=== PATIENT | female | born 1945 | race Caucasian/White ===

== ENCOUNTER → 2019-07-10 09:43 | Outpatient (BNVA) | payer MEDICARE, SELFPAY | PROVIDERS: Family Provider Family Medicine; PCP Family Medicine; Visit Provider Family Medicine | DX: E03.9 Hypothyroidism, unspecified (principal); F03.91 Unspecified dementia, unspecified severity, with behavioral disturbance | CPT/HCPCS: 80053; 84443; 85025 ==

== ENCOUNTER → 2020-01-07 09:53 | Outpatient (BNVA) | payer MEDICARE, SELFPAY | PROVIDERS: Family Provider Family Medicine; PCP Family Medicine; Visit Provider Family Medicine | DX: E03.9 Hypothyroidism, unspecified (principal); Z13.6 Encounter for screening for cardiovascular disorders | CPT/HCPCS: 80061; 84443 ==

== ENCOUNTER → 2020-03-20 11:46 | Outpatient (BNVA) | payer MEDICARE, SELFPAY | PROVIDERS: Family Provider Family Medicine; PCP Family Medicine; Visit Provider Family Medicine | DX: E03.9 Hypothyroidism, unspecified (principal) | CPT/HCPCS: 84443 ==

== ENCOUNTER → 2020-09-26 09:55 | Outpatient (BNVA) | payer MEDICARE, SELFPAY | PROVIDERS: Family Provider Family Medicine; PCP Family Medicine; Visit Provider Family Medicine | DX: R41.82 Altered mental status, unspecified (principal); E03.9 Hypothyroidism, unspecified; L60.0 Ingrowing nail | CPT/HCPCS: 81000; 84443; 87086 ==

== ENCOUNTER 2024-01-17 19:47 | Inpatient (IN) | payer MEDICARE, MEDICAID, SELFPAY ==
[2024-01-17 19:51] VITALS: BP 130/89; PULSE 80; RESP 18; TEMP 37.2; O2SAT 93; BMI 27.3
[2024-01-17 19:54] VITALS: BP 130/89; PULSE 80; RESP 18; TEMP 37.2; O2SAT 93
--- NOTE | 2024-01-17 19:54 | XRR_ITS ---
PROCEDURE INFORMATION: Exam: XR Left Knee Exam date and time: 01/17/2024 8:21 PM Age: 78 years old Clinical indication: Injury or trauma; Fall; Blunt trauma; Knee; Left; Additional info: Fall, hip FX TECHNIQUE: Imaging protocol: Radiologic exam of the left knee. Views: 3 views. COMPARISON: CR (LOW EXM, ) 01/17/2024 8:13 PM FINDINGS: Bones/joints: Normal. Soft tissues: Normal. XR/XR knee LT 3V* [id number] IMPRESSION: No acute findings.
--- NOTE | 2024-01-17 19:54 | XRR_ITS ---
PROCEDURE INFORMATION: Exam: XR Chest Exam date and time: 01/17/2024 8:04 PM Age: 78 years old Clinical indication: Injury or trauma; Fall; Blunt trauma (contusions or hematomas) TECHNIQUE: Imaging protocol: Radiologic exam of the chest. Views: 1 view. COMPARISON: No relevant prior studies available. FINDINGS: Lungs: Unremarkable. No consolidation. Pleural spaces: Unremarkable. No pleural effusion. No pneumothorax. Heart/Mediastinum: Large hiatal hernia. Mild cardiomegaly. Bones/joints: Unremarkable. XR/XR chest 1V portable [id number] IMPRESSION: 1. Negative for traumatic injury to the chest. 2. Large hiatal hernia. 3. Mild cardiomegaly.
--- NOTE | 2024-01-17 19:54 | XRR_ITS ---
PROCEDURE INFORMATION: Exam: XR Left Hip Exam date and time: 01/17/2024 8:06 PM Age: 78 years old Clinical indication: Injury or trauma; Fall; Blunt trauma (contusions or hematomas); Left; Hip and pelvic region; Additional info: Fall FX TECHNIQUE: Imaging protocol: Radiologic exam of the left hip. Views: 2 or 3 views hip with pelvis when performed. COMPARISON: US renal BI* [id number] 04/13/2018 4:24 PM FINDINGS: Bones/joints: Equivocal left hip subcapital impacted fracture, consider correlation with CT scan. Soft tissues: Unremarkable. XR/XR hip LT 2-3V wo/w pel* [id number] IMPRESSION: Equivocal left hip subcapital impacted fracture, consider correlation with CT scan.
--- NOTE | 2024-01-17 19:58 | ED_ITS ---
HPI - Extremity Problem 2 General: Chief complaint: Extremity Injury, Lower Stated complaint: hip fx, femur fx Time Seen by Provider: 01/17/24 19:49 History of Present Illness: [facility] with complaints of a fall on Tuesday and complaining of left hip pain when she bears weight ever since. They did get an x-ray of her lumbosacral spine, left hip and left femur, these showed impacted left femoral neck fracture. She was transferred over here for further evaluation treatment. Patient does have dementia but she is mobile. Related Data Home Medications Medication Instructions Recorded Confirmed ibuprofen 800 mg tablet 800 mg PO QDAY PRN pain 06/22/19 10/23/20 loratadine 10 mg capsule 10 mg PO QDAY 06/22/19 10/23/20 Previous Rx's Medication Instructions Recorded citalopram 20 mg tablet 20 mg PO QDAY #90 tabs 01/07/20 levothyroxine 50 mcg capsule 50 mcg PO DAILY #90 caps 09/29/20 olanzapine 5 mg tablet (Zyprexa) 5 mg PO .AT BEDTIME #30 tabs 09/29/20 omeprazole 20 mg capsule,delayed 20 mg PO .EVERY MORNING #30 caps 09/29/20 release Allergies Allergy/AdvReac Type Severity Reaction Status Date / Time No Known Allergies Allergy Verified 01/17/24 19:54 Review of Systems 2 General: Reports: ROS unobtainable due to mental status PFSH ED 2 PFSH: Medical History (Updated 01/17/24 @ 20:06 by Walter Morales DO) Hypothyroid Dementia with psychosis Dyslipidemia Surgical History S/P cataract surgery Surgical history unknown Social History Smoking and tobacco/nicotine status: never used tobacco/nicotine Alcohol intake: never Substance/Drug Use: never Caregiver/support person: Yes Lives independently: No Household members: caregiver Physical Exam 2 Const: COMMON NORMALS: no acute distress, average body habitus, healthy appearing, alert and well nourished HENMT: COMMON NORMALS: normocephalic, atraumatic, hearing grossly normal bilaterally, external ears normal, Normal external nose present and moist oral mucous membranes HEAD & SCALP: normocephalic and atraumatic NOSE: Normal external nose present EXTERNAL EAR: Yes external ears normal Neck/C-Spine: COMMON NORMALS: full ROM, no lymphadenopathy, supple, no meningeal signs, no JVD and Thyroid normal THYROID: Thyroid normal Chest: COMMONS NORMALS: normal inspection of the chest and normal palpation of entire chest wall Resp: COMMON NORMALS: normal respiratory effort, No retractions, No use of accessory muscles and clear to auscultation bilaterally AUSCULTATION: clear to auscultation bilaterally Cardio: COMMON NORMALS: no JVD, regular rate, regular rhythm, S1 normal heart sound present, S2 normal heart sound present, No gallops present (Cardio), No clicks present (Cardio), No murmurs present (Cardio) and No rub (Cardio) R ATE: regular rate RHYTHM: regular rhythm HEART SOUNDS: S1 normal heart sound present and S2 normal heart sound present GI: COMMON NORMALS: Normal to inspection, nondistended, normoactive bowel sounds present, Soft to palpation, non-tender, No hepatosplenomegaly present and no masses PALPATION: Yes Soft to palpation and Yes No hepatosplenomegaly present Extremity: NARRATIVE EXTREMITY EXAM: Tenderness with palpation over the left hip region, no obvious crepitus or deformity, limited range of motion secondary to pain, Neuro: SENSORIUM/ORIENTATION: Yes alert MENINGEAL SIGNS: Yes no meningeal signs Course 2 Vital Signs: Vital signs: Vital Signs Temperature 98.9 F 01/17/24 19:54 Pulse Rate 80 01/17/24 19:54 Respiratory Rate 18 01/17/24 19:54 Blood Pressure 130/89 01/17/24 19:54 Pulse Oximetry 93 01/17/24 19:54 Oxygen Delivery Me thod Nasal Cannula 01/17/24 19:54 Oxygen Flow Rate 2 01/17/24 19:51 MDM - Extremity (Nontraumatic) Medical Decision Making X-rays were sent with the patient, we are repeating the x-rays as well as getting presurgical labs, Dr. Junior and Dr. Choi have both been notified and agreed to place the patient inpatient for further evaluation and treatment. Medical Records I reviewed the patient's medical records. Lab Data I reviewed the patient's lab results. 01/17/24 20:00 01/17/24 20:00 Laboratory Results WBC 11.20 10^3/uL (3.29-11.43) 01/17/24 20:00 RBC 3.73 10^6/uL (3.85-5.65) L 01/17/24 20:00 Hgb 11.80 g/dL (11.27-16.99) 01/17/24 20:00 Hct 36.2 % (36-47) 01/17/24 20:00 MCV 97.1 fl (85-98) 01/17/24 20:00 MCH 31.6 pg (27-33) 01/17/24 20:00 MCHC 32.6 g/dL (30-55) 01/17/24 20:00 RDW 13.7 % (12.1-15.1) 01/17/24 20:00 Plt Count 225 10^3/cmm (157-399) 01/17/24 20:00 MPV 10.6 fL (7.4-10.4) H 01/17/24 20:00 Neut % (Auto) 82.6 % 01/17/24 20:00 Lymph % (Auto) 6.9 % 01/17/24 20:00 Frontier % (Auto) 6.9 % 01/17/24 20:00 Eos % (Auto) 2.9 % 01/17/24 20:00 Baso % (Auto) 0.3 % 01/17/24 20:00 Neut # (Auto) 9.25 10^3/uL (1.8-7.7) H 01/17/24 20:00 Lymph # (Auto) 0.8 10^3/uL (0.8-4.8) 01/17/24 20:00 Frontier # (Auto) 0.8 10^3/uL (0.2-0.9) 01/17/24 20:00 Eos # (Auto) 0.3 10^3/uL (0.0-0.8) 01/17/24 20:00 Baso # (Auto) 0.0 10^3/uL (0.0-0.1) 01/17/24 20:00 Nucleated RBC % (auto) 0 % 01/17/24 20:00 Nucleated RBCs # 0.0 /100WBC 01/17/24 20:00 PT 13.40 SECONDS (12.1-14.9) 01/17/24 20:00 INR 0.99 (0.8-1.2) 01/17/24 20:00 Sodium 142 mmol/L (136-145) 01/17/24 20:00 Potassium 3.9 mmol/L (3.5-5.1) 01/17/24 20:00 Chloride 108 mmol/L (98-107) H 01/17/24 20:00 Carbon Dioxide 22 mmol/L (22-29) 01/17/24 20:00 Anion Gap 15.9 (5-19) 01/17/24 20:00 BUN 32 mg/dL (8-23) H 01/17/24 20:00 Creatinine 0.8 mg/dL (0.5-0.9) 01/17/24 20:00 GFR Calculation Not Reportable 01/17/24 20:00 Glucose 115 mg/dL (65-115) 01/17/24 20:00 Calculated Osmolality 302 mOsm/kg (285-295) H 01/17/24 20:00 Calcium 9.0 mg/dL (8.5-10.5) 01/17/24 20:00 Total Bilirubin 0.3 mg/dL (0.15-1.2) 01/17/24 20:00 AST 41 U/L (0-32) H 01/17/24 20:00 ALT 32 U/L (0-33) 01/17/24 20:00 Alkaline Phosphatase 129 U/L (35-105) H 01/17/24 20:00 Total Protein 7.5 g/dL (6.6-8.7) 01/17/24 20:00 Albumin 3.8 g/dL (3.5-5.2) 01/17/24 20:00 Globulin 3.7 g/dL (1.3-4.6) 01/17/24 20:00 All radiology interpretation(s) finalized by discharge Discharge Plan Discharge Patient Disposition: Admitted As Inpatient Admit Provider: Robert Junior Clinical Impression: Closed fracture of left hip, Dementia, Fall Condition: Stable Coding Level of Care Code ED Clinical Rehabilitation Specialist for Ambrose Jennings
--- NOTE | 2024-01-17 19:59 | XRR_ITS ---
PROCEDURE INFORMATION: Exam: XR Left Femur Exam date and time: 01/17/2024 8:13 PM Age: 78 years old Clinical indication: Injury or trauma; Fall; Blunt trauma; Thigh or upper leg; Left; Additional info: Fall hip FX TECHNIQUE: Imaging protocol: Radiologic exam of the left femur. Views: 2 views. COMPARISON: CR (PELVIS, ) 01/17/2024 8:06 PM FINDINGS: Bones/joints: Equivocal left hip subcapital impacted fracture, consider correlation with CT scan. Soft tissues: Unremarkable. XR/XR femur LT min 2V* [id number] IMPRESSION: Equivocal left hip subcapital impacted fracture, consider correlation with CT scan.
--- NOTE | 2024-01-17 20:04 | ECG_ITS ---
[facility] Test Date: 2024-01-17 Pat Name: Larisa Cobian Department: Room: Gender: Female Lead Application Architect: : [id number] Requested By: Walter Morales Order Number: [id number] Loli MD: Korina Melendez M.D. Measurements Intervals [place] Rate: 79 P: 0 MT: 0 QRS: -34 QRSD: 85 T: 47 QT: 379 QTc: 435 Interpretive Statements SUPRAVENTRICULAR RHYTHM LEFT AXIS DEVIATION [QRS AXIS < -30] LOW QRS VOLTAGE IN PRECORDIAL LEADS [QRS DEFLECTION < 1.0 mV IN CHEST LEADS] PATTERN CONSISTENT WITH PULMONARY DISEASE POSSIBLE RIGHT VENTRICULAR CONDUCTION DELAY [RSR (QR) IN V1/V2] No previous ECG available for comparison Heavy baseline artifact, need to repeat. Defective EKG Electronically Signed On 01-17-2024 23:33:10 CDT by Korina Melendez M.D. [email or web address]
[2024-01-17 20:09] LABS: Basophils % 0.3 %; Eosinophils # 0.3 10^3/uL (0.0-0.8); Eosinophils % 2.9 %; Hematocrit 36.2 % (36-47); Lymphocytes # 0.8 10^3/uL (0.8-4.8); Lymphocytes % 6.9 %; Mean Corpuscular HGB Conc 32.6 g/dL (30-55); Mean Corpuscular Hemoglobin 31.6 pg (27-33); Mean Corpuscular Volume 97.1 fl (85-98); Mean Platelet Volume 10.6 fL (7.4-10.4); Monocytes # 0.8 10^3/uL (0.2-0.9); Monocytes % 6.9 %; Neutrophils # 9.25 10^3/uL (1.8-7.7); Neutrophils % 82.6 %; Nucleated Red Blood Cells % 0 %; Platelet Count 225 10^3/cmm (157-399); Red Blood Count 3.73 10^6/uL (3.85-5.65); Red Cell Distribution Width 13.7 % (12.1-15.1)
[2024-01-17 20:21] LABS: INR 0.99 (0.8-1.2)
[2024-01-17 20:27] LABS: Alanine Aminotransferase 32 U/L (0-33); Albumin Level 3.8 g/dL (3.5-5.2); Alkaline Phosphatase 129 U/L (35-105); Anion Gap 15.9 (5-19); Aspartate Amino Transferase 41 U/L (0-32); Blood Urea Nitrogen 32 mg/dL (8-23); Carbon Dioxide 22 mmol/L (22-29); Chloride 108 mmol/L (98-107); Creatinine Clr Calc Pharmacy 47.4402; Globulin 3.7 g/dL (1.3-4.6); Glucose 115 mg/dL (65-115); Osmolality Calculated 302 mOsm/kg (285-295); Potassium 3.9 mmol/L (3.5-5.1); Sodium 142 mmol/L (136-145); Total Bilirubin 0.3 mg/dL (0.15-1.2); Total Protein 7.5 g/dL (6.6-8.7)
[2024-01-17] MEDS: ondansetron 2 mg/ML SDV 2 mL 4 MG IVP (21:00)
[2024-01-17] MEDS: morphine 4 mg/mL SDV 1 mL IVP (21:00)
--- NOTE | 2024-01-17 21:45 | P.HP_ITS ---
Providers/Chief Complaint 2 Admitting Physician: Robert Junior Primary Care Provider: Cheryl Sullivan DO Chief Complaint: hip fx, femur fx History of Present Illness 78-year-old lady with history of dementia, hypothyroidism, long-term resident, was brought in after complaining of left hip pain after a fall on Tuesday. Found to have an impacted left femoral neck fracture on x-ray in ER. Orthopedics consulted. Review of Systems 2 General: Reports: ROS unobtainable due to medical condition Medications/Allergies Home Medications Medication Instructions Recorded Confirmed Last Taken Type loratadine 10 mg capsule 10 mg PO DAILY PRN allergies 06/22/19 01/17/24 Unknown History 2 Darwin 90 ml PO BID 01/17/24 01/17/24 01/17/24 16:04 History acetaminophen 325 mg tablet 325 mg PO QID PRN pain or fever 01/17/24 01/17/24 01/17/24 07:04 History bisacodyl 10 mg rectal suppository 10 mg W[place] DAILY PRN constipaiton 01/17/24 01/17/24 Unknown History citalopram 20 mg tablet 10 mg PO DAILY 01/17/24 01/17/24 01/17/24 07:02 History hydrocodone 5 mg-acetaminophen 325 1 tab PO BID PRN Pain, Severe 01/17/24 01/17/24 01/17/24 10:07 History mg tablet hydrocortisone 1 % topical cream 1 applic topical BID PRN itching 01/17/24 01/17/24 Unknown History for rash levothyroxine 75 mcg tablet 75 mcg PO DAILY 01/17/24 01/17/24 01/17/24 07:02 History magnesium hydroxide 400 mg/5 mL 400 mg PO DAILY PRN Constipation 01/17/24 01/17/24 Unknown History oral suspension (Milk of Magnesia) nystatin 100,000 unit/gram topical 1 applic topical BID Rash 01/17/24 01/17/24 01/17/24 18:36 History powder omeprazole 20 mg capsule,delayed 20 mg PO DAILY 01/17/24 01/17/24 01/17/24 07:02 History release polyethylene glycol 3350 17 gram 17 g PO DAILY 01/17/24 01/17/24 01/17/24 07:02 History oral powder packet (Miralax) quetiapine 100 mg tablet 150 mg PO BEDTIME 01/17/24 01/17/24 01/17/24 17:10 History quetiapine 50 mg tablet (Seroquel) 50 mg PO DAILY 01/17/24 01/17/24 01/17/24 07:02 History sodium phosphates 19 gram-7 118 ml W[place] DAILY PRN Constipation 01/17/24 01/17/24 Unknown History gram/118 mL enema (Fleet Enema) Allergies Allergy/AdvReac Type Severity Reaction Status Date / Time No Known Allergies Allergy Verified 01/17/24 19:54 PFSH Acute 2 PFSH: Medical History Hypothyroid Dementia with psychosis Dyslipidemia Surgical History S/P cataract surgery Surgical history unknown Social History Smoking and tobacco/nicotine status: never used tobacco/nicotine Alcohol intake: never Substance/Drug Use: never Caregiver/support person: Yes Lives independently: No Household members: caregiver Vitals/I&O/Wt Last Vital Signs Temp 98.9 F 01/17/24 19:54 Pulse 80 01/17/24 19:54 Resp 18 01/17/24 19:54 BP 130/89 01/17/24 19:54 Pulse Ox 93 01/17/24 19:54 O2 Del Method Nasal Cannula 01/17/24 19:54 O2 Flow Rate 2 01/17/24 19:51 Weight last 48 hrs Weight 63.503 kg Physical Exam 2 Const: COMMON NORMALS: alert; negative for patient oriented x3 GENERAL APPEARANCE: not cooperative O RIENTATION/CONSCIOUSNESS: Yes awake HENMT: COMMON NORMALS: oropharynx normal Neck/C-Spine: COMMON NORMALS: no JVD Resp: COMMON NORMALS: normal respiratory effort and clear to auscultation bilaterally AUSCULTATION: clear to auscultation bilaterally Cardio: COMMON NORMALS: no JVD, regular rhythm, S1 normal heart sound present, S2 normal heart sound present and No murmurs present (Cardio) RHYTHM: regular rhythm HEART SOUNDS: S1 normal heart sound present and S2 normal heart sound present GI: COMMON NORMALS: Normal to inspection, nondistended, normoactive bowel sounds present, Soft to palpation and non-tender PALPATION: Yes Soft to palpation Extremity: COMMON NORMALS: no joint enlargement and no pedal edema Neuro: COMMON NORMALS: moves all extremities; negative for patient oriented x3 SENSORIUM/ORIENTATION: Yes alert Skin: COMMON NORMALS: no rashes or lesions noted GENERAL SKIN EXAM: no rashes or lesions noted Data 01/17/24 20:00 01/17/24 20:00 A&P Assessment and plan (1) Closed fracture of left hip: Impacted left hip subcapital fracture after a fall on Tuesday noted on x-ray in ER. Femur and knee x-rays without other abnormality. Chest x-ray with large hiatal hernia, mild cardiomegaly. Without acute findings. She is unable to provide history. History obtained from collateral sources. Reviewed vitals, CBC, INR, CMP, EKG somewhat difficult to interpret due to tremor, but appears to be in sinus rhythm without obvious signs of ischemia, possible Q waves in V1 on my interpretation, pending official read. Reviewed ER note, discussed with ER provider. Orthopedics will be seeing her with regards to options for hip fracture. VTE prophylaxis 1 dose of heparin. Follow-up CBC, chemistry, at risk of anemia. Acetaminophen and her hydrocodone for mild to moderate pain. IV morphine for severe breakthrough. Miralax, dulcolax PRN. Qualifiers: Encounter type: initial encounter Qualified Code(s): S72.002A - Fracture of unspecified part of neck of left femur, initial encounter for closed fracture (2) Dementia: Continue citalopram, quetiapine. Qualifiers: Dementia behavioral or psychological symptom: unspecified whether behavioral, psychotic, or mood disturbance or anxiety Dementia severity: m oderate Dementia type: unspecified type Qualified Code(s): F03.B0 - Unspecified dementia, moderate, without behavioral disturbance, psychotic disturbance, mood disturbance, and anxiety (3) Hypothyroid: Continue levothyroxine. Attestations 2 Medical Necessity Statement*: Admission of over 2 midnights anticipated for assessment of management of left hip fracture in a lady of advanced age with dementia. and High MDM includes amount and/or complexity of data reviewed/ordered [ previous or external records, resulted lab(s)/test(s), ordered lab(s)/test(s), independent test interpretation and other healthcare professional discussion] and described risk of complication, morbidity or mortality of management as documented Diagnoses Closed fracture of left hip S72.002A Encounter type: initial encounter Dementia F03.B0 Dementia behavioral or psychological symptom: unspecified whether behavioral, psychotic, or mood disturbance or anxiety Dementia severity: moderate Dementia type: unspecified type Hypothyroid E03.9
[2024-01-17 21:52] LABS: Charge for UA Resulting for Rev
[2024-01-17 21:59] LABS: Bilirubin Urine Negative (Negative); Blood Urine Negative (Negative); Glucose Urine UA Negative (Normal); Ketones Urine Negative (Negative); Leukocyte Esterase Urine Trace (Negative); Nitrate Urine Negative (Negative); Protein Urine Trace (Negative); Specific Gravity, Urine 1.021 (1.005-1.030); Urine Appearance Cloudy (CLEAR); Urine Color Yellow (Yellow); pH Urine 5.5 (5-7)
[2024-01-17 22:01] LABS: Bacteria Urine 4+ /hpf; Hyaline Casts Urine 1.21 /lpf; RBC Urine 0-2 /hpf (0-2); Squamous Epithelial Cell Urine 0-5 /hpf (0-5)
[2024-01-17 22:08] LABS: Add Urine Culture? Yes
[2024-01-17 22:12] VITALS: BP 137/89; PULSE 79; RESP 17; TEMP 37.1; O2SAT 93; BMI 27.5
[2024-01-17] MEDS: HYDROcodone-acetaminophen 5-325 mg Tablet 1 TAB PO (22:44)
[2024-01-17] MEDS: quetiapine 100 mg Tablet 150 MG PO (22:44)
[2024-01-17] MEDS: heparin 5,000 unit/mL INJ 1 mL 5000 UNIT SUBCUT (22:44)
--- NOTE | 2024-01-17 23:07 | PC.NURSE ---
[facility] staff states that patient is on a pureed diet and they crush her pills. They state that patient is mostly wheelchair bound and needs assistance with transfers. Patient is AMS and unable to answer questions.
--- NOTE | 2024-01-17 23:10 | CTR_ITS ---
PROCEDURE INFORMATION: Exam: CT Left Lower Extremity, Hip Exam date and time: 01/18/2024 1:28 AM Age: 78 years old Clinical indication: Pain; Hip; Left; Additional info: Left hip fem neck fract TECHNIQUE: Imaging protocol: CT of the left lower extremity without contrast was performed. Exam focused on the hip. Radiation optimization: All CT scans at this facility use at least one of these dose optimization techniques: automated exposure control; mA and/or kV adjustment per patient size (includes targeted exams where dose is matched to clinical indication); or iterative reconstruction. COMPARISON: CR (PELVIS, ) 01/17/2024 8:06 PM RADIATION DOSE METRICS: Total DLP (mGy-cm): 341.58 FINDINGS: Bones/joints: Acute or subacute left subcapital femoral neck fracture with mild fracture impaction/foreshortening mild apex anterior angulation. Femoral head remains well seated within the acetabular fossa. Osseous demineralization. No other fractures identified. Soft tissues: Soft tissue swelling about the fracture. CT/CT hip LT wo con* [id number] IMPRESSION: Acute or subacute left subcapital femoral neck fracture.
[2024-01-18] VITALS (15 sets, daily range): BP systolic 101–148; BP diastolic 60–93; PULSE 59–77; RESP 12–18; TEMP 36.1–37.1; O2SAT 92–100; BMI 27.6
[2024-01-18 05:31] LABS: Basophils % 0.4 %; Eosinophils # 0.4 10^3/uL (0.0-0.8); Eosinophils % 5.5 %; Hematocrit 35.1 % (36-47); Lymphocytes # 1.1 10^3/uL (0.8-4.8); Lymphocytes % 14.2 %; Mean Corpuscular HGB Conc 31.3 g/dL (30-55); Mean Corpuscular Volume 98.9 fl (85-98); Monocytes # 0.5 10^3/uL (0.2-0.9); Monocytes % 7.1 %; Neutrophils # 5.36 10^3/uL (1.8-7.7); Neutrophils % 72.3 %; Nucleated Red Blood Cells % 0 %; Platelet Count 204 10^3/cmm (157-399); Red Blood Count 3.55 10^6/uL (3.85-5.65); Red Cell Distribution Width 13.7 % (12.1-15.1); White Blood Count 7.42 10^3/uL (3.29-11.43)
[2024-01-18 05:58] LABS: Alanine Aminotransferase 34 U/L (0-33); Albumin Level 3.3 g/dL (3.5-5.2); Alkaline Phosphatase 111 U/L (35-105); Blood Urea Nitrogen 26 mg/dL (8-23); Calcium 8.5 mg/dL (8.5-10.5); Carbon Dioxide 21 mmol/L (22-29); Chloride 113 mmol/L (98-107); Creatinine Clr Calc Pharmacy 47.7178; Globulin 3.4 g/dL (1.3-4.6); Glucose 90 mg/dL (65-115); Osmolality Calculated 306 mOsm/kg (285-295); Sodium 146 mmol/L (136-145); Total Bilirubin 0.5 mg/dL (0.15-1.2); Total Protein 6.7 g/dL (6.6-8.7)
[2024-01-18 06:00] LABS: Anion Gap 16.1 (5-19); Aspartate Amino Transferase 47 U/L (0-32); Potassium 4.1 mmol/L (3.5-5.1)
[2024-01-18] MEDS: levothyroxine 75 mcg Tablet PO (06:47)
--- NOTE | 2024-01-18 08:54 | P.CONIM_ITS ---
<Statement entered by Parth Choi DO - 01/30/24 22:16> Reviewed and agree with PAs assessment and plan. Patient was seen and evaluated in the preoperative holding area as well as with the patient's POA. Patient is demented at baseline and unable to obtain an appropriate history. She currently resides in a halfway and was brought in after a fall. She is found to have a displaced left hip femoral neck fracture originally this was appear to be impacted but CT scan demonstrates significant angular deformity and displacement as result feel this would be better amenable for a left hip hemiarthroplasty. I did talk with her POA about treatment options far as nonoperative and operative invention. We talked about the risk benefits complication alternatives surgery. Risk of surgery include but not limited to make a better make it worse injury nerves vessels or tendons, leg length discrepancies, and instability, infection. Understanding risk of surgery through shared decision making agree with POA to proceed with surgical intervention today of a left hip hemiarthroplasty with goals for better pain control as well as for earlier mobilization with comfort. Sounds at baseline she is mostly wheelchair-bound but does some weightbearing for transfers POA understands and agrees with current plan. All questions been answered at this time. Will we will proceed with a left hip hemiarthroplasty today. Parth Choi DO Orthopedic surgery Providers/Reason For Consult 2 Consulting Physician/Specialty*: Dr. Steph DO/orthopedic surgeon Reason for Consult*: Left hip fracture Requesting Physician: Dr. Andrew DO/emergency department Attending Physician: Robert Junior Primary Care Provider: Cheryl Sullivan DO History of Present Illness History of Present Illness Larisa Cobian is a 78 year old female that has dementia and resides at halfway and was brought to the emergency department for left hip pain after a fall. Patient unable to provide HPI due to dementia. HPI was provided by nurse and reviewing emergency room doctor's note. Patient had a fall several days ago and patient was complaining of left hip pain so she was sent to the emergency department and found to have a left hip fracture. Patient is wheelchair-bound and is not on any blood thinners. Patient does do some weightbearing for transfers. Review of Systems 2 General: Reports: 10 or more systems reviewed and unremarkable except in HPI and below Musc: Reports: extremity pain (Left hip), joint pain (Left hip) and limited range of motion (Left hip) Medications/Allergies Home Medications Medication Instructions Recorded Confirmed Last Taken Type loratadine 10 mg capsule 10 mg PO DAILY PRN allergies 06/22/19 01/17/24 Unknown History 2 Darwin 90 ml PO BID 01/17/24 01/17/24 01/17/24 16:04 History acetaminophen 325 mg tablet 325 mg PO QID PRN pain or fever 01/17/24 01/17/24 01/17/24 07:04 History bisacodyl 10 mg rectal suppository 10 mg GA DAILY PRN constipaiton 01/17/24 01/17/24 Unknown History citalopram 20 mg tablet 10 mg PO DAILY 01/17/24 01/17/24 01/17/24 07:02 History hydrocodone 5 mg-acetaminophen 325 1 tab PO BID PRN Pain, Severe 01/17/24 01/17/24 01/17/24 10:07 History mg tablet hydrocortisone 1 % topical cream 1 applic topical BID PRN itching 01/17/24 01/17/24 Unknown History for rash levothyroxine 75 mcg tablet 75 mcg PO DAILY 01/17/24 01/17/24 01/17/24 07:02 History magnesium hydroxide 400 mg/5 mL 400 mg PO DAILY PRN Constipation 01/17/24 01/17/24 Unknown History oral suspension (Milk of Magnesia) nystatin 100,000 unit/gram topical 1 applic topical BID Rash 01/17/24 01/17/24 01/17/24 18:36 History powder omeprazole 20 mg capsule,delayed 20 mg PO DAILY 01/17/24 01/17/24 01/17/24 07:02 History release polyethylene glycol 3350 17 gram 17 g PO DAILY 01/17/24 01/17/24 01/17/24 07:02 History oral powder packet (Miralax) quetiapine 100 mg tablet 150 mg PO BEDTIME 01/17/24 01/17/24 01/17/24 17:10 History quetiapine 50 mg tablet (Seroquel) 50 mg PO DAILY 01/17/24 01/17/24 01/17/24 07:02 History sodium phosphates 19 gram-7 118 ml GA DAILY PRN Constipation 01/17/24 01/17/24 Unknown History gram/118 mL enema (Fleet Enema) Allergies Allergy/AdvReac Type Severity Reaction Status Date / Time No Known Allergies Allergy Verified 01/17/24 19:54 Current Medications Generic Name Dose Route Start Last Admin Trade Name Edwardq PRN Reason Stop Dose Admin Hydrocodone Bitart/Acetaminophen 1 tab 01/17/24 22:14 01/17/24 22:44 Hydrocodone-Acetaminophen 5-325 Mg Tablet PO 1 tab BID PRN Administration Pain, Severe Levothyroxine Sodium 75 mcg 01/18/24 06:00 01/18/24 06:47 Levothyroxine 75 Mcg Tablet PO 75 mcg 0600 AUDIE Administration Quetiapine Fumarate 150 mg 01/17/24 22:15 01/17/24 22:44 Quetiapine 100 Mg Tablet PO 150 mg BEDTIME AUDIE Administration PFSH Acute 2 PFSH: Medical History Hypothyroid Dementia with psychosis Dyslipidemia Surgical History S/P cataract surgery Surgical history unknown Social History Smoking and tobacco/nicotine status: never used tobacco/nicotine Alcohol intake: never Substance/Drug Use: never Caregiver/support person: Yes Lives independently: No Household members: caregiver Vitals/I&O/Wt Last Vital Signs Temp 97.8 F 01/18/24 08:46 Pulse 75 01/18/24 08:46 Resp 16 01/18/24 08:46 BP 139/81 01/18/24 08:46 Pulse Ox 92 01/18/24 08:46 O2 Del Method Nasal Cannula 01/18/24 08:46 O2 Flow Rate 2 01/18/24 05:12 01/17/24 01/18/24 01/18/24 22:59 06:59 14:59 Output Total 550 / 550 Balance -550 / -550 Weight last 48 hrs Weight 141 lb 11.2 oz Weight 141 lb Weight 140 lb Physical Exam 2 Narrative: Exam is limited due to patient's dementia. Left lower extremity-leg is not shortened and not externally rotated. Positive logroll test. Tenderness to palpation left hip. compartments are soft and compressible. Patient can Wiggle toes. Toes are warm and well-perfused. Pedal pulse 1+. Secondary assessment of other extremities limited do to pt's underlying dementia Upper extremities-no visible injuries, abrasions. no tenderness to palpation of shoulders or wrist. Right lower extremity-no visible injury or trauma seen. Full range of motion in hip. Negative logroll test. Pedal pulse 1+ and patient can wiggle toes. Const: COMMON NORMALS: no acute distress and alert Resp: COMMON NORMALS: normal respiratory effort and No retractions Cardio: COMMON NORMALS: Peripheral pulses 2+ throughout PERIPHERAL PULSES: Peripheral pulses 2+ throughout Neuro: SENSORIUM/ORIENTATION: Yes alert Skin: GENERAL SKIN EXAM: dry skin Urinary Catheter Management: Cowart: Cath Placed During This Visit: yes Reason for Continuing Indwelling Catheter: Required Immobilization for Trauma or Surgery or Anesthesia Urinary Catheter Date of Insertion: 01/17/24 Urinary Catheter Time of Insertion: 21:47 Data 01/18/24 04:30 01/18/24 04:[address]: Radiologist's impression: Patient: Larisa Cobian Unit #: [id number] : 1945 Age/Sex: 78 / F ADM Date: 01/17/24 Loc: [facility] Room/Bed: [facility] Attending Dr: Robert Junior MD Ordering Provider/Ordering MD: Parth Choi Date of Service: 01/17/24 Procedure(s): CT hip LT wo con* [id number] Accession Number(s): [id number] Report Number: [id number] PROCEDURE INFORMATION: Exam: CT Left Lower Extremity, Hip Exam date and time: 01/18/2024 1:28 AM Age: 78 years old Clinical indication: Pain; Hip; Left; Additional info: Left hip fem neck fract TECHNIQUE: Imaging protocol: CT of the left lower extremity without contrast was performed. Exam focused on the hip. Radiation optimization: All CT scans at this facility use at least one of these dose optimization techniques: automated exposure control; mA and/or kV adjustment per patient size (includes targeted exams where dose is matched to clinical indication); or iterative reconstruction. COMPARISON: CR (PELVIS, ) 01/17/2024 8:06 PM RADIATION DOSE METRICS: Total DLP (mGy-cm): 341.58 FINDINGS: Bones/joints: Acute or subacute left subcapital femoral neck fracture with mild fracture impaction/foreshortening mild apex anterior angulation. Femoral head remains well seated within the acetabular fossa. Osseous demineralization. No other fractures identified. Soft tissues: Soft tissue swelling about the fracture. CT/CT hip LT wo con* [id number] IMPRESSION: Acute or subacute left subcapital femoral neck fracture. Dictated By: Caty Turcios MD Xray Ortho: Radiologist's impression: Patient: Larisa Cobian Unit #: [id number] : 1945 Age/Sex: 78 / F ADM Date: 01/17/24 Loc: [facility] Room/Bed: [facility]- Attending Dr: Robert Junior MD Ordering Provider/Ordering MD: Walter Morales DO Date of Service: 01/17/24 Procedure(s): XR femur LT min 2V* [id number] Accession Number(s): [id number] Report Number: [id number] PROCEDURE INFORMATION: Exam: XR Left Femur Exam date and time: 01/17/2024 8:13 PM Age: 78 years old Clinical indication: Injury or trauma; Fall; Blunt trauma; Thigh or upper leg; Left; Additional info: Fall hip FX TECHNIQUE: Imaging protocol: Radiologic exam of the left femur. Views: 2 views. COMPARISON: CR (PELVIS, ) 01/17/2024 8:06 PM FINDINGS: Bones/joints: Equivocal left hip subcapital impacted fracture, consider correlation with CT scan. Soft tissues: Unremarkable. XR/XR femur LT min 2V* [id number] IMPRESSION: Equivocal left hip subcapital impacted fracture, consider correlation with CT scan. Dictated By: Sánchez Hall MD A&P Assessment and plan (1) Closed fracture of left hip: Qualifiers: Encounter type: initial encounter Qualified Code(s): S72.002A - Fracture of unspecified part of neck of left femur, initial encounter for closed fracture Plan Plan: -Imaging and Labs reviewed -Hospitalist on board for medical management. -VTE prophylaxis -Nonweightbearing on Left leg -Pain control -NPO -Surgery this afternoon for Right hip hemiarthroplasty to fix subcapital impacted fracture of left femur. Coding Level of Care Code Acute Code for Chg Fwd Diagnoses Closed fracture of left hip S72.002A Encounter type: initial encounter
--- NOTE | 2024-01-18 09:16 | P.PN_ITS ---
Subjective 2 Subjective: Patient not able to participate for physical therapy or interview has significant dementia resident of [facility] Dr. Choi is consulted for management of hip fracture Patient is wheelchair-bound Patient is on antipsychotic upper extremities seems to be very rigid today Vitals/I&O/Wt Last Vital Signs Temp 97.8 F 01/18/24 08:46 Pulse 75 01/18/24 08:46 Resp 16 01/18/24 08:46 BP 139/81 01/18/24 08:46 Pulse Ox 92 01/18/24 08:46 O2 Del Method Nasal Cannula 01/18/24 08:46 O2 Flow Rate 2 01/18/24 05:12 01/17/24 01/18/24 01/18/24 22:59 06:59 14:59 Output Total 550 / 550 Balance -550 / -550 Weight last 48 hrs Weight 64.274 kg Weight 63.957 kg Weight 63.503 kg Physical Exam 2 Narrative: early female Not able to provide any history Oriented to herself Opens eyes Not able to give me appropriate answers Her upper extremities seem very rigid Painful ambulation of lower extremity limited range of motion Clinically looks dehydrated She seems to have cataract of right eye Pupillary asymmetry noted Urinary Catheter Management: Cowart: Cath Placed During This Visit: yes Reason for Continuing Indwelling Catheter: Required Immobilization for Trauma or Surgery or Anesthesia Urinary Catheter Date of Insertion: 01/17/24 Urinary Catheter Time of Insertion: 21:47 Data 01/18/24 04:30 01/18/24 04:30 A&P Assessment and plan (1) Closed fracture of left hip: Qualifiers: Encounter type: initial encounter Qualified Code(s): S72.002A - Fracture of unspecified part of neck of left femur, initial encounter for closed fracture (2) Fall: Qualifiers: Encounter type: initial encounter Qualified Code(s): W19.XXXA - Unspecified fall, initial encounter (3) Mental status alteration: (4) Dementia with psychosis: (5) Dementia: Qualifiers: Dementia behavioral or psychological symptom: unspecified whether behavioral, psychotic, or mood disturbance or anxiety Dementia severity: m oderate Dementia type: unspecified type Qualified Code(s): F03.B0 - Unspecified dementia, moderate, without behavioral disturbance, psychotic disturbance, mood disturbance, and anxiety (6) Dehydration: (7) Hypernatremia: Plan Hip fracture Going for intervention today DVT prophylax SCDs Delirium with dementia Patient is dehydrated with hypernatremia That carries guarded prognosis I will start IV fluids Extraparametal symptoms? Hold antipsychotics Upper extremity rigidity noted It could be the cause of fall For agitation, instead of using scheduled doses I would keep antipsychotics on as needed use DNR/DNI N.p.o. Start IV fluids Continue opioids Cowart catheter placed on admission Wheelchair-bound Attestations 2 Medical Necessity Statement*: Continue medical management Diagnoses Closed fracture of left hip S72.002A Encounter type: initial encounter Fall W19.XXXA Encounter type: initial encounter Mental status alteration R41.82 Dementia with psychosis F03.91 Dementia F03.B0 Dementia behavioral or psychological symptom: unspecified whether behavioral, psychotic, or mood disturbance or anxiety Dementia severity: moderate Dementia type: unspecified type Dehydration E86.0 Hypernatremia E87.0
--- NOTE | 2024-01-18 09:17 | PC.CHAP ---
Pastoral Care Encounter/Spiritual Assessment Type of Contact [] Declined medical records auditor visit [] Patient/Family/Request visit [] Outpatient visit [] Follow-up visit [] Physician referral [] Code/Alert [] Routine visit [] Staff referral [] Actively dying [x] Patient sleeping [] Family support [] [] Out of room [] Palliative care [] [] Receiving care in room [] Pre-surgical visit [] Trauma [] Long length of stay [] ICU visit [] Other: Relational/Emotional Strength [] Patient feels connected with others/family/visitors/staff [] Distress [] Loneliness/isolation [] Abandonment Spirituality of Patient [] Person of [place] [] Attends Buddhist of their [place] [] Believes in Prayer [] Reads Bible or Bahai materials [] There are Spiritual issues to be addressed Paper Inserter Interventions [] Prayer [] Active listening [] Non-anxious presence [] Spiritual/emotional support [] Crisis/trauma care [] Spiritual counseling [] Bereavement support [] Provided bereavement packet [] Provided Bible/devotional materials [] Provided toy/stuffed animal, coloring book to patient or family member [] Provided Communion [] Anointing/Cypress [] Salvation [] Completed spiritual assessment [] Other: Impact on Illness or Injury [] Angry [] Fearful [] Anxious [] Often cries [] Exhaustion [] Unable to work [] Unable to attend gnosticist [] Unable to walk/stand [] Unable to read [] Unable to drive [] Unable to eat/drink [] Unable to sleep [] Unable to be with family [] Patient intubated [] Other: Summary Time spent with patient
[2024-01-18] MEDS: pantoprazole DR 40 mg Tablet PO (09:31)
[2024-01-18] MEDS: citalopram 20 mg Tablet 10 MG PO (09:32)
[2024-01-18] MEDS: dextrose 5%-lactated ringers 1,000 ML 100 ML IV (09:39)
--- NOTE | 2024-01-18 11:02 | P.ANESASSM_ITS ---
Pre-Anesthetic Assessment Height/Weight: Height 5 ft Weight 141 lb 11.2 oz Temp Pulse Resp BP Pulse Ox O2 Del Method O2 Flow Rate 97.8 F 75 16 139/81 92 Nasal Cannula 2 01/18/24 08:46 01/18/24 08:46 01/18/24 08:46 01/18/24 08:46 01/18/24 08:46 01/18/24 08:46 01/18/24 05:12 Operation Date: 01/18/24 15:25 Proposed Procedures p Hemiarthroplasty Hip(Left) - Parth Choi, Last intake: Intake Last Liquid Date 01/17/24 Last Solid Date 01/17/24 Social No alcohol and No tobacco Exam Patient demented at baseline. No verbal communication during exam Airway Submandibular: within normal limits Cervical ROM: within normal limits Mallampati: Class III Dentition: false Comments: Comments: Poor effort during oral exam Anesthetic Plan ASA status: 3 Anesthesia: General Other: POA present at bedside, she states she does not know any of the patient's medical history Patient unable to respond to questioning secondary to severe dementia Per chart review patient has GERD, hypothyroidism, anxiety Labs reviewed, hemoglobin 11.0 Adequate IV access Plan for GETA Medications/Allergies Home Medications Medication Instructions Recorded Confirmed Last Taken Type loratadine 10 mg capsule 10 mg PO DAILY PRN allergies 06/22/19 01/17/24 Unknown History 2 Darwin 90 ml PO BID 01/17/24 01/17/24 01/17/24 16:04 History acetaminophen 325 mg tablet 325 mg PO QID PRN pain or fever 01/17/24 01/17/24 01/17/24 07:04 History bisacodyl 10 mg rectal suppository 10 mg MI DAILY PRN constipaiton 01/17/24 01/17/24 Unknown History citalopram 20 mg tablet 10 mg PO DAILY 01/17/24 01/17/24 01/17/24 07:02 History hydrocodone 5 mg-acetaminophen 325 1 tab PO BID PRN Pain, Severe 01/17/24 01/17/24 01/17/24 10:07 History mg tablet hydrocortisone 1 % topical cream 1 applic topical BID PRN itching 01/17/24 01/17/24 Unknown History for rash levothyroxine 75 mcg tablet 75 mcg PO DAILY 01/17/24 01/17/24 01/17/24 07:02 History magnesium hydroxide 400 mg/5 mL 400 mg PO DAILY PRN Constipation 01/17/24 01/17/24 Unknown History oral suspension (Milk of Magnesia) nystatin 100,000 unit/gram topical 1 applic topical BID Rash 01/17/24 01/17/24 01/17/24 18:36 History powder omeprazole 20 mg capsule,delayed 20 mg PO DAILY 01/17/24 01/17/24 01/17/24 07:02 History release polyethylene glycol 3350 17 gram 17 g PO DAILY 01/17/24 01/17/24 01/17/24 07:02 History oral powder packet (Miralax) quetiapine 100 mg tablet 150 mg PO BEDTIME 01/17/24 01/17/24 01/17/24 17:10 History quetiapine 50 mg tablet (Seroquel) 50 mg PO DAILY 01/17/24 01/17/24 01/17/24 07:02 History sodium phosphates 19 gram-7 118 ml MI DAILY PRN Constipation 01/17/24 01/17/24 Unknown History gram/118 mL enema (Fleet Enema) Allergies Allergy/AdvReac Type Severity Reaction Status Date / Time No Known Allergies Allergy Verified 01/17/24 19:54 Current Medications Generic Name Dose Route Start Last Admin Trade Name Freq PRN Reason Stop Dose Admin Hydrocodone Bitart/Acetaminophen 1 tab 01/17/24 22:14 01/17/24 22:44 Hydrocodone-Acetaminophen 5-325 Mg Tablet PO 1 tab BID PRN Administration Pain, Severe Citalopram Hydrobromide 10 mg 01/18/24 09:00 01/18/24 09:32 Citalopram 20 Mg Tablet PO 10 mg DAILY AUDIE Administration Dextrose/Lactated Ringer's 1,000 mls @ 100 mls/hr 01/18/24 09:30 01/18/24 09:39 Dextrose 5%-Lactated Ringers IV 100 mls/hr .Q10H AUDIE Administration Levothyroxine Sodium 75 mcg 01/18/24 06:00 01/18/24 06:47 Levothyroxine 75 Mcg Tablet PO 75 mcg 0600 AUDIE Administration Pantoprazole Sodium 40 mg 01/18/24 09:00 01/18/24 09:[address] 40 Mg Tablet PO 40 mg DAILY AUDIE Administration Polyethylene Glycol 17 gm 01/18/24 09:00 01/18/24 09:32 Polyethylene Glycol 3350 Pkt 17 Gm PO Not Given DAILY AUDIE PFSH Anesthesia Medical History (Updated 01/18/24 @ 09:19 by Alex Gusman MD) Hypothyroid Dementia with psychosis Dyslipidemia Surgical History S/P cataract surgery Surgical history unknown Social History Smoking and tobacco/nicotine status: never used tobacco/nicotine Alcohol intake: never Substance/Drug Use: never Caregiver/support person: Yes Lives independently: No Household members: caregiver Data Anesthesia 01/18/24 04:30 01/18/24 04:30 Short CBC 01/17/24 01/18/24 Range/Units 20:00 04:30 WBC 11.20 7.42 (3.29-11.43) 10^3/uL Hgb 11.80 11.00 L (11.27-16.99) g/dL Hct 36.2 35.1 L (36-47) % MCV 97.1 98.9 H (85-98) fl Plt Count 225 204 (157-399) 10^3/cmm Neut % (Auto) 82.6 72.3 % Neut # (Auto) 9.25 H 5.36 (1.8-7.7) 10^3/uL BMP 01/17/24 01/18/24 20:00 04:30 Sodium 142 146 H Potassium 3.9 4.1 Chloride 108 H 113 H Carbon Dioxide 22 21 L BUN 32 H 26 H Creatinine 0.8 0.7 Glucose 115 90 Calcium 9.0 8.5 Liver Function 01/17/24 01/18/24 Range/Units 20:00 04:30 Total Bilirubin 0.3 0.5 (0.15-1.2) mg/dL AST 41 H 47 H (0-32) U/L ALT 32 34 H (0-33) U/L Alkaline Phosphatase 129 H 111 H (35-105) U/L Albumin 3.8 3.3 L (3.5-5.2) g/dL Urine 01/17/24 Range/Units 21:39 Urine Color Yellow (Yellow) Urine Appearance Cloudy A (CLEAR) Urine pH 5.5 (5-7) Ur Specific [place] 1.021 (1.005-1.030) Urine Protein Trace A (Negative) Urine Glucose (UA) Negative (Normal) Urine Ketones Negative (Negative) Urine Nitrate Negative (Negative) Urine Bilirubin Negative (Negative) Ur Leukocyte Esterase Trace A (Negative) Urine RBC 0-2 (0-2) /hpf Urine WBC 6-10 (0-5) /hpf Coags 01/17/24 20:00 PT 13.40 INR 0.99 Cardiac Studies: 2 No Data to Display
--- NOTE | 2024-01-18 13:58 | W.PM.OPSUD ---
Surgery/Procedure H&P Update DATE OF PROCEDURE: January 18, 2024 DATE H&P PERFORMED: 01/18/24 H&P UPDATE INFORMATION: I have reviewed H&P completed within last 30 days, I have examined patient prior to procedure and No changes to prior documentation CHANGES TO PREVIOUS DOCUMENTATION: Please refer to orthopedic consultation note for detailed discussion. I did meet with the POA in the preoperative area and we talked about treatment options far as doing nothing possibility of a [place], hemiarthroplasty. understanding the ins and outs of procedure the risk benefits complication alternatives with surgery and through shared decision-making patient's POA elects to proceed with surgical intervention for a left hip hemiarthroplasty. All questions have been answered at this time we will proceed with surgery today. PREOP DIAGNOSIS: Displaced left hip femoral neck fracture PRIMARY INDICATION FOR PROCEDURE: Displaced left hip femoral neck fracture PLANNED PROCEDURE: Operation Date: 01/18/24 15:25 Proposed Procedures p Hemiarthroplasty Hip(Left) - Parth Choi DO
[2024-01-18] MEDS: fentaNYL 50 mcg/mL INJ 2mL 25 MCG IVP (14:28)
[2024-01-18] MEDS: ketorolac 30 mg/mL INJ IVP (14:39)
[2024-01-18] MEDS: sodium chloride 0.9% 1,000 ML 30 ML IV (14:39)
[2024-01-18] MEDS: acetaminophen 1,000 MG/100 ML PIGGYBACK 400 MG IV ×2 (14:40→21:43)
--- NOTE | 2024-01-18 14:42 | PC.NURSE ---
Pt to outpatients via floor bed, patient DPOA at bedside, patient unable to answer questions, pt with signs of pain, gripping bedding, grimacing face, digging finger nails into arm, when attempting to position pt she yells out, order from anesthesia VRBO Fentanly 25 mcg IVP once for pain. Patient on 2L of oxygen sating at 97%.
[2024-01-18] MEDS: ceFAZolin 2,000 MG in sodium chloride 0.9% (plus) 50 ML 100 MG IV (16:32)
[2024-01-18] MEDS: tranexamic acid 1,000 mg/10mL SDV 1000 MG IV (16:56)
[2024-01-18] MEDS: vancomycin 1,000 MG SDV 1000 MG XX (17:57)
--- NOTE | 2024-01-18 18:17 | P.BOP_ITS ---
Date of Procedure: [01/18/2024] Surgeon: Parth Choi DO Hazardous Substances Engineer(s): Ap Choi PA-C Procedure(s) performed: Left hip hemiarthroplasty?cemented posterior approach Findings of the procedure(s): Patient had displaced left hip femoral neck fracture underwent procedure as planned without issues or complications Estimated blood loss: 150 mL Specimen(s) removed: Femoral head removed Post-operative diagnosis: Left hip displaced femoral neck fracture
--- NOTE | 2024-01-18 18:18 | PM.OP ---
Operative Report Date of procedure: January 18, 2024 Surgeon: Parth Choi DO Insulation Board Calender Operator: Ap Choi PA-C: PA was necessary for assistance in this case with leg positioning, hip reductions, retraction and protection of neurovascular structures as well as assistance in implantation wound closure and dressing application. Procedure: Preoperative diagnosis: Left hip displaced femoral neck fracture Post-op?diagnosis: Same Procedure done: left?hip?hemiarthroplasty, cemented Implants: [place] Accolade C 127 degree femoral stem size 4 Bipolar head 43 mm Femoral head -3 mm offset 8mm distal cement spacer Surgeon: Parth Choi DO Estimated blood loss: 150 mL IV fluids: 900 mL Urine output: 400 mL Complications: None Findings: See?operative report Condition: stable Disposition: floor Brief History: Patient was seen in the emergency department and subsequently admitted after fall.? Patient sustained a left displaced femoral neck fracture.? Patient was subsequently admitted by the hospitalist team for medical management and preoperative ?optimization and the orthopedic surgery team was consulted for evaluation and treatment recommendations.? Patient was seen evaluated by my PA please refer to detailed consultation note however I did end up being able to speak with patient's POA about treatment options as far as nonoperative and operative invention. ? We talked about nonoperative versus?operative intervention talked about the risk benefits complication alternatives to surgical nonsurgical treatment?options.? Risk of surgery were discussed and MPOA understands and agrees to proceed with procedure.? At this point time would recommend a left?hip?hemiarthroplasty given patient's angulation and displacement.? This will offer patient pain control as well as early mobilization with comfort. Patient was medically?optimized by the primary team she was then taken to the OR.? patient's POA understands risk benefits complication alternatives with surgical nonsurgical treatment?options.? At this point time elects to proceed with left?hip?hemiarthroplasty.? All questions answered.? Procedure: Patient seen evaluated the preoperative holding area with POA.? Consent was reviewed and signed with patient POA. ? ?pt was seen evaluated by the anesthesia department.? Once cleared for surgery patient patient was taken back to the?operative suite.? Patient was then transported onto the OR table.? pt underwent anesthesia per the anesthesia department.? Once appropriately anesthetized patient was then positioned in lateral decubitus position with the left?hip?up.? Patient was placed on a pegboard appropriately secured to the bed all bony prominences well-padded.? Next the left lower extremity was then prepped and draped in sterile orthopedic fashion.? Final timeout performed.? Patient received appropriate preoperative antibiotics. A standard posterolateral approach was then made over the lateral aspect of the?hip.? Sharp scalpel incision was made through skin and subcutaneous tissue I then utilized a Morris elevator to mobilize over the fascia.? The fascia was then split longitudinally with electrocautery.? Next a bursectomy was then performed.? I then placed Hohmann underneath the abductors.? The?hip?was placed under tension with internal rotation.? I then utilizing electrocautery performed a full-thickness release of the short external rotators and capsule in 1 full thick sleeve for lateral repair.? This was then taken down to the lesser trochanter.? Immediately on capsulotomy hematoma was noticed and displaced femoral neck fracture appreciated.? I then placed a Hohmann above and below the neck.? I then utilized an oscillating saw to freshen the cut this was roughly half of a fingerbreadth above the lesser as patient did fracture slightly lower on the neck.? Once this was performed this access was removed with rongeur.? ?I then utilized a corkscrew to remove the head.? This was then subsequently sized and measured to be a 43 mm head size.? I then thoroughly irrigated the acetabulum.? A Hohmann was placed anteriorly and thorough inspection of the acetabulum no significant arthritic changes were noted.? I then utilized a rongeur and Bovie to remove the pulvinar.? Once this was performed I then subsequently took my trial 43 mm head and trialed this which had excellent fit and appropriate suction fit noted.? This was then subsequently removed. Once this was performed I irrigated the socket and then turned my attention towards the femoral preparation.? I utilized Bovie and rongeur to remove the soft tissue off of the saddle.? Once this was done a box osteotome followed by a canal finder and? lateralizing rattail rasp was used to appropriately lateralized in the canal.? Next I then subsequently broached to a size 4 Accolade C. [place] femoral stem which had appropriate fixation.? Unfortunately she had thin cortices and was unable to trial with a 4 in the size 5 was too large. I then elected to proceed with standard cementation technique.? Cement was mixed on the back table the final implant was?opened and appropriately measurement on distal cement plug to accommodate the cement mantle and femoral stem.? This was set and impacted in place to appropriate depth.? Next I utilized the cement brush thoroughly irrigated the canal and then dry the canal with tampon.? Once cement was appropriately mixed and ready for cementation informed anesthesia and they?optimize patient's oxygenation cement was then impacted using cement gun and then was subsequently pressurized.?? The femoral stem size 4 was then impacted in place with appropriate anteversion and held into place and all excess cement was removed and allowed to cure once cured I then trialed a standard size head which felt slightly long. I then subsequently trialed with a -3 mm. This had satisfactory leg lengths as well as appropriate shuck, and excellent stability in all planes of motion with no evidence of instability. at this point this was determined to being my final femoral head size.? This was subsequently dislocated the trial head was then removed the final implant of bipolar head 43 mm with a -3mm offset was then?opened.? The trunnion was then cleaned and dried and this was impacted in place with excellent fixation.? I then reduced the?hip?this had excellent stability and appropriate leg lengths.? The wound bed was then thoroughly irrigated.? I then utilizing #5 Ethibond suture performed my repair of the capsule and short external rotators through bone tunnels.? ?Wound bed was then thoroughly irrigated,1 gram vanco powder placed in wound bed.? IT band was closed with strata fix suture and the deep subcutaneous and subcutaneous layers were closed with 0 strata fix and 2-0 strata fix.? Skin was then closed reapproximated with bonnie.? Silverlon dressing applied.? Patient placed in abduction pillow posterior?hip?precautions.? pt? was awakened from anesthesia and taken to PACU in stable condition Disposition: Patient taken to PACU in stable condition will receive appropriate discharge directions as well as pain medication DVT prophylaxis postoperatively.? Patient? will return to the floor postoperatively.? Patient will be weightbearing as tolerated to the left lower extremity.? Posterior?hip?precautions. Abduction pillow in place.? DVT prophylaxis, pain medication, postoperative antibiotics and TXA.? Patient will work with PT/OT and discharge services for discharge planning.? Patient understands agrees with current plan.? All questions answered.? ?patient will? see orthopedics in the office in 2 weeks.
--- NOTE | 2024-01-18 18:24 | XRR_ITS ---
PROCEDURE INFORMATION: Exam: XR Left Hip Exam date and time: 01/18/2024 6:34 PM Age: 78 years old Clinical indication: Hip pain; Prior surgery; Surgery date: Post-operative (0-2 days); Surgery type: Left hip saritha; Additional info: Post op left hip saritha, do in pacu TECHNIQUE: Imaging protocol: Radiologic exam of the left hip. Views: 2 or 3 views hip with pelvis when performed. COMPARISON: CT hip LT wo con* [id number] 01/18/2024 1:28 AM FINDINGS: Bones/joints: Postsurgical changes status post left hip replacement. No periprosthetic fractures. The pubic symphysis and sacroiliac joints are well aligned. The bones are osteopenic. Soft tissues: Unremarkable. XR/XR hip LT 2-3V wo/w pel* [id number] IMPRESSION: Postsurgical changes status post left hip replacement. No periprosthetic fractures.
--- NOTE | 2024-01-18 18:39 | PM.PACU ---
PACU note Narrative: Patient is a 78-year-old female just underwent left hip hemiarthroplasty. Patient was transferred to PACU in stable condition. Patient is alert but her exam is limited given her baseline dementia. Dressing is dry. Distal pulses are palpable toes are warm and well-perfused. Compartments are soft compressible. Cap refill is normal and under 2 seconds. Pain is controlled. Exam: awake Disposition: back to floor
[2024-01-19] VITALS: BP 124/71; PULSE 69; RESP 18; TEMP 36.7; O2SAT 100
[2024-01-19] MEDS: ceFAZolin 2,000 MG in sodium chloride 0.9% (plus) 50 ML 100 MG IV ×2 (00:21→09:23)
[2024-01-19] MEDS: tranexamic acid 1,000 MG/100 ML PREMIX 600 MG IV (00:22)
[2024-01-19 04:00] VITALS: BP 105/67; PULSE 74; RESP 18; TEMP 36.8; O2SAT 99
[2024-01-19 05:13] LABS: Basophils % 0.3 %; Eosinophils # 0.3 10^3/uL (0.0-0.8); Eosinophils % 4.6 %; Lymphocytes # 0.6 10^3/uL (0.8-4.8); Mean Corpuscular HGB Conc 31.3 g/dL (30-55); Mean Corpuscular Hemoglobin 31.2 pg (27-33); Mean Corpuscular Volume 99.7 fl (85-98); Mean Platelet Volume 10.7 fL (7.4-10.4); Monocytes # 0.4 10^3/uL (0.2-0.9); Monocytes % 5.7 %; Neutrophils # 5.51 10^3/uL (1.8-7.7); Neutrophils % 79.8 %; Nucleated Red Blood Cells % 0 %; Platelet Count 204 10^3/cmm (157-399); Red Blood Count 3.11 10^6/uL (3.85-5.65); Red Cell Distribution Width 13.6 % (12.1-15.1)
[2024-01-19 05:35] LABS: Alanine Aminotransferase 75 U/L (0-33); Albumin Level 3.3 g/dL (3.5-5.2); Alkaline Phosphatase 167 U/L (35-105); Anion Gap 14.9 (5-19); Aspartate Amino Transferase 130 U/L (0-32); Blood Urea Nitrogen 22 mg/dL (8-23); Calcium 8.2 mg/dL (8.5-10.5); Carbon Dioxide 20 mmol/L (22-29); Chloride 113 mmol/L (98-107); Creatinine Clr Calc Pharmacy 47.7178; Glucose 85 mg/dL (65-115); Osmolality Calculated 301 mOsm/kg (285-295); Potassium 3.9 mmol/L (3.5-5.1); Sodium 144 mmol/L (136-145); Total Bilirubin 0.7 mg/dL (0.15-1.2); Total Protein 6.3 g/dL (6.6-8.7)
[2024-01-19 05:48] VITALS: RESP 16
[2024-01-19] MEDS: morphine 4 mg/mL SDV 1 mL 2 MG IVP (05:48)
[2024-01-19] MEDS: levothyroxine 75 mcg Tablet PO (05:49)
[2024-01-19] MEDS: enoxaparin 30 mg/0.3 mL Syringe SUBCUT (05:49)
[2024-01-19] MEDS: acetaminophen 1,000 MG/100 ML PIGGYBACK 400 MG IV (05:49)
[2024-01-19] MEDS: dextrose 5%-lactated ringers 1,000 ML 100 ML IV (05:50)
[2024-01-19 07:42] VITALS: BP 187/92; PULSE 98; RESP 15; TEMP 36.7; O2SAT 95
--- NOTE | 2024-01-19 09:10 | P.DS_ITS ---
Discharge Providers Date of Admission: 01/17/24 20:56 Date of Discharge: January 19, 2024 Attending Provider at Admission: Robert Junior Attending Provider at Discharge: Robert Junior Primary Care Provider: Cheryl Sullivan DO Diagnoses at Discharge Discharge Diagnosis (1) Closed fracture of left hip: Status: Acute Qualifiers: Encounter type: initial encounter Qualified Code(s): S72.002A - Fracture of unspecified part of neck of left femur, initial encounter for closed fracture (2) Fall: Status: Acute Qualifiers: Encounter type: initial encounter Qualified Code(s): W19.XXXA - Unspecified fall, initial encounter (3) Mental status alteration: Status: Acute (4) Dementia with psychosis: Status: Chronic (5) Dementia: Status: Acute Qualifiers: Dementia behavioral or psychological symptom: unspecified whether behavioral, psychotic, or mood disturbance or anxiety Dementia severity: moderate Dementia type: unspecified type Qualified Code(s): F03.B0 - Unspecified dementia, moderate, without behavioral disturbance, psychotic disturbance, mood disturbance, and anxiety (6) Dehydration: Status: Acute (7) Hypernatremia: Status: Acute Reason for Visit Reason for Visit: hip fx, femur fx Hospital Course Hospital Course 78-year-old female who has advanced dementia resident of half-way, wheelchair dependent, she tried to get up from a wheelchair fell on the ground sustaining left hip fracture, Dr. Choi was consulted, status post left hip hemiarthroplasty 01/17, no postop complications, will remove Cowart catheter before her discharge back to the nursing facility, patient is edentulous, she is tolerating her diet, oriented to herself only will get DVT prophylaxis along opioids and bowel regimen. Physical Exam Narrative: Awake and alert Euvolemic GCS 15 oriented to herself Not able to participate in conversation Not complaining of pain S1, S2 Currently on room air Urinary Catheter Management: Cowart: Cath Placed During This Visit: yes Reason for Continuing Indwelling Catheter: Other Urinary Catheter Date of Insertion: 01/17/24 Urinary Catheter Time of Insertion: 21:47 Discharge Data Studies Completed and Pending Completed Studies During Hospitalization Category Date Time Status CT hip LT wo con* [id number] Routine Cat Scan 01/17/24 23:10 Completed XR chest 1V portable [id number] Stat Exams 01/17/24 19:54 Completed XR femur LT min 2V* [id number] Stat Exams 01/17/24 19:59 Completed XR hip LT 2-3V wo/w pel* [id number] Routine Exams 01/18/24 18:24 Completed XR hip LT 2-3V wo/w pel* [id number] Stat Exams 01/17/24 19:54 Completed XR knee LT 3V* [id number] Stat Exams 01/17/24 19:54 Completed Pending at discharge Category Date Time Status Basic Metabolic Panel AM LABS Lab 01/20/24 04:00 Ordered Basic Metabolic Panel AM LABS Lab 01/21/24 04:00 Ordered Complete Blood Count w/Auto AM LABS Lab 01/20/24 04:00 Ordered Complete Blood Count w/Auto AM LABS Lab 01/20/24 04:00 Ordered Complete Blood Count w/Auto AM LABS Lab 01/21/24 04:00 Ordered Comprehensive Metabolic Panel AM LABS Lab 01/20/24 04:00 Ordered Urine Culture Stat Lab 01/17/24 21:39 Received Radiology Impressions Chest X-Ray 01/17/24 19:54 IMPRESSION: 1. Negative for traumatic injury to the chest. 2. Large hiatal hernia. 3. Mild cardiomegaly. Knee X-Ray 01/17/24 19:54 IMPRESSION: No acute findings. Femur X-Ray 01/17/24 19:59 IMPRESSION: Equivocal left hip subcapital impacted fracture, consider correlation with CT scan. Hip CT 01/17/24 23:10 IMPRESSION: Acute or subacute left subcapital femoral neck fracture. Hip/Pelvis X-Ray 01/18/24 18:24 IMPRESSION: Postsurgical changes status post left hip replacement. No periprosthetic fractures. Laboratory Results WBC 6.90 10^3/uL (3.29-11.43) 01/19/24 04:00 RBC 3.11 10^6/uL (3.85-5.65) L 01/19/24 04:00 Hgb 9.70 g/dL (11.27-16.99) L 01/19/24 04:00 Hct 31.0 % (36-47) L 01/19/24 04:00 MCV 99.7 fl (85-98) H 01/19/24 04:00 MCH 31.2 pg (27-33) 01/19/24 04:00 MCHC 31.3 g/dL (30-55) 01/19/24 04:00 RDW 13.6 % (12.1-15.1) 01/19/24 04:00 Plt Count 204 10^3/cmm (157-399) 01/19/24 04:00 MPV 10.7 fL (7.4-10.4) H 01/19/24 04:00 Neut % (Auto) 79.8 % 01/19/24 04:00 Lymph % (Auto) 9.0 % 01/19/24 04:00 [place] % (Auto) 5.7 % 01/19/24 04:00 Eos % (Auto) 4.6 % 01/19/24 04:00 Baso % (Auto) 0.3 % 01/19/24 04:00 Neut # (Auto) 5.51 10^3/uL (1.8-7.7) 01/19/24 04:00 Lymph # (Auto) 0.6 10^3/uL (0.8-4.8) L 01/19/24 04:00 [place] # (Auto) 0.4 10^3/uL (0.2-0.9) 01/19/24 04:00 Eos # (Auto) 0.3 10^3/uL (0.0-0.8) 01/19/24 04:00 Baso # (Auto) 0.0 10^3/uL (0.0-0.1) 01/19/24 04:00 Nucleated RBC % (auto) 0 % 01/19/24 04:00 Nucleated RBCs # 0.0 /100WBC 01/19/24 04:00 PT 13.40 SECONDS (12.1-14.9) 01/17/24 20:00 INR 0.99 (0.8-1.2) 01/17/24 20:00 Sodium 144 mmol/L (136-145) 01/19/24 04:00 Potassium 3.9 mmol/L (3.5-5.1) 01/19/24 04:00 Chloride 113 mmol/L (98-107) H 01/19/24 04:00 Carbon Dioxide 20 mmol/L (22-29) L 01/19/24 04:00 Anion Gap 14.9 (5-19) 01/19/24 04:00 BUN 22 mg/dL (8-23) 01/19/24 04:00 Creatinine 0.7 mg/dL (0.5-0.9) 01/19/24 04:00 GFR Calculation Not Reportable 01/19/24 04:00 Glucose 85 mg/dL (65-115) 01/19/24 04:00 Calculated Osmolality 301 mOsm/kg (285-295) H 01/19/24 04:00 Calcium 8.2 mg/dL (8.5-10.5) L 01/19/24 04:00 Total Bilirubin 0.7 mg/dL (0.15-1.2) 01/19/24 04:00 AST 130 U/L (0-32) H 01/19/24 04:00 ALT 75 U/L (0-33) H 01/19/24 04:00 Alkaline Phosphatase 167 U/L (35-105) H 01/19/24 04:00 Total Protein 6.3 g/dL (6.6-8.7) L 01/19/24 04:00 Albumin 3.3 g/dL (3.5-5.2) L 01/19/24 04:00 Globulin 3.0 g/dL (1.3-4.6) 01/19/24 04:00 Urine Color Yellow (Yellow) 01/17/24 21:39 Urine Appearance Cloudy (CLEAR) A 01/17/24 21:39 Urine pH 5.5 (5-7) 01/17/24 21:39 Ur Specific [place] 1.021 (1.005-1.030) 01/17/24 21:39 Urine Protein Trace (Negative) A 01/17/24 21:39 Urine Glucose (UA) Negative (Normal) 01/17/24 21:39 Urine Ketones Negative (Negative) 01/17/24 21:39 Urine Blood Negative (Negative) 01/17/24 21:39 Urine Nitrate Negative (Negative) 01/17/24 21:39 Urine Bilirubin Negative (Negative) 01/17/24 21:39 Urine Urobilinogen 1.0 mg/dL (Negative) 01/17/24 21:39 Ur Leukocyte Esterase Trace (Negative) A 01/17/24 21:39 Urine RBC 0-2 /hpf (0-2) 01/17/24 21:39 Urine WBC 6-10 /hpf (0-5) 01/17/24 21:39 Ur Squamous Epith Cells 0-5 /hpf (0-5) 01/17/24 21:39 Amorphous Sediment Not Reportable 01/17/24 21:39 Urine Bacteria 4+ /hpf (NONE) H 01/17/24 21:39 Hyaline Casts 1.21 /lpf 01/17/24 21:39 Blood Type O Positive 01/18/24 14:00 Rho(D) Type Rh positive 01/18/24 14:00 Antibody Screen Negative 01/18/24 14:00 Vitals Last Vital Signs Temp 98.1 F 01/19/24 07:42 Pulse 98 01/19/24 07:42 Resp 15 01/19/24 07:42 BP 187/92 01/19/24 07:42 Pulse Ox 95 01/19/24 07:42 O2 Del Method Room Air 01/19/24 07:42 O2 Flow Rate 3 01/18/24 20:00 Discharge Plan Discharge Patient Disposition: Xfer SNF Condition: Stable Prescriptions: New sennosides-docusate sodium [Stool Softener-Laxative] 8.6-50 mg Tablet 2 tab PO BID Qty: 20 0RF Eliquis 2.5 mg tablet 2.5 mg PO BID Qty: 60 0RF Continued loratadine 10 mg capsule 10 mg PO DAILY PRN (Reason: allergies) Miralax 17 gram Powder In Packet 17 g PO DAILY quetiapine 100 mg Tablet 150 mg PO BEDTIME levothyroxine 75 mcg Tablet 75 mcg PO DAILY omeprazole 20 mg Capsule,Delayed Release(Dr/Ec) 20 mg PO DAILY Seroquel 50 mg Tablet 50 mg PO DAILY citalopram 20 mg tablet 10 mg PO DAILY acetaminophen 325 mg Tablet 325 mg PO QID PRN (Reason: pain or fever) Milk of Magnesia 400 mg/5 mL Suspension 400 mg PO DAILY PRN (Reason: Constipation) hydrocortisone 1 % Cream 1 applic TOPICAL BID PRN (Reason: itching for rash) bisacodyl 10 mg Suppository 10 mg AL DAILY PRN (Reason: constipaiton) Fleet Enema 19-7 gram/118 mL Enema 118 ml AL DAILY PRN (Reason: Constipation) nystatin 100,000 unit/gram Powder 1 applic TOPICAL BID Rx Instructions: cleanse beneth right breast with soap and water, pat dry, apply powder BID until healed for rash 2 [place] 90 ml PO BID Rx Instructions: for weight loss hydrocodone-acetaminophen 5-325 mg Tablet 1 tab PO BID PRN (Reason: Pain, Severe) Qty: 10 0RF Discharge Orders: Discharge Order (Routine); Ordered 01/19/24 Ordered By: Alex Gusmna Referrals: Cheryl Sullivan DO [Primary Care Provider] - Parth Choi DO [Physician] - 2 weeks Discharge Diet: Regular Discharge Activity: Limit activity as instructed and Use walker/crutches as instructed Patient Instructions: Acute Wound Care (DC), Post Anesthesia Care Activity Restrictions/Additional Instructions: Orthopedic discharge instructions: Patient may weight-bear as tolerated to the operative lower extremity Posterior hip precautions (avoid excess excessive hip flexion past 90 degrees and internal rotation) Take DVT prophylaxis (blood thinner) as prescribed ) Take pain medication as prescribed Take antinausea medication as needed Supplement with Citracal vitamin D for bone health and healing Ice as needed for pain and swelling Leave Silverlon bandage dressing on for 7 days after that may remove, rinse incision with warm soapy water/shower pat dry keep clean dry and intact and redress with a clean dry dressing. No baths or soap Follow-up in the orthopedic office in 2 weeks from date of surgery Contact the office for any questions or concerns per (fevers, increased drainage or redness around the incision site etc.) Discharge Attestations Time Spent in Discharge Care*: greater than 30 min Quality Metrics Clinical Quality Measures [ No reported AMI, CVA or VTE this stay] Coding Level of Care Code Acute Code for Chg Fwd Diagnoses Closed fracture of left hip S72.002A Encounter type: initial encounter Fall W19.XXXA Encounter type: initial encounter Mental status alteration R41.82 Dementia with psychosis F03.91 Dementia F03.B0 Dementia behavioral or psychological symptom: unspecified whether behavioral, psychotic, or mood disturbance or anxiety Dementia severity: moderate Dementia type: unspecified type Dehydration E86.0 Hypernatremia E87.0
[2024-01-19] MEDS: quetiapine 25 mg Tablet 50 MG PO (09:23)
[2024-01-19] MEDS: calcium carb-vit d 600mg/400unit 1 Tablet 1 EACH PO (09:23)
[2024-01-19] MEDS: sennosides-docusate Tablet 2 TAB PO (09:23)
[2024-01-19] MEDS: mupirocin oint 22 gm 1 APPLIC NASAL (09:24)
[2024-01-19] MEDS: chlorhexidine gluconate 0.12% Btl 473 mL 30 ML MUCOUS MEM (09:24)
[2024-01-19] MEDS: iron polysaccharide complex 150 mg Capsule PO (09:24)
[2024-01-19] MEDS: pantoprazole DR 40 mg Tablet PO (09:24)
[2024-01-19] MEDS: polyethylene glycol 3350 Pkt 17 gm PO (09:24)
[2024-01-19] MEDS: citalopram 20 mg Tablet 10 MG PO (09:24)
[2024-01-19] MEDS: multivitamin therapeutic Tablet 1 TAB PO (09:24)
[2024-01-19 11:12] VITALS: BP 101/65; PULSE 84; RESP 17; TEMP 36.5; O2SAT 94
[2024-01-19 11:31] LABS: SARS Covid-2 Antigen Negative (Negative)
--- NOTE | 2024-01-19 11:53 | PC.NURSE ---
Called report to Juancarlos Lanza, Radha Salvador LPN at [phone]
--- NOTE | 2024-01-19 12:01 | PC.OT ---
OT EVALUATION ORDERS RECEIVED. PATIENT SCHEDULED FOR D/C
[2024-01-19] MEDS: HYDROcodone-acetaminophen 5-325 mg Tablet 1 TAB PO (12:07)
--- NOTE | 2024-01-19 15:38 | PM.MISC ---
Miscellaneous Note Purpose of Documentation: Orthopedic note update: Patient was discharged prior to my evaluation as I was in the OR this morning. Patient had discharge instructions as well as medications in chart for discharge. Confirmed with hospitalist that patient will go home on DVT prophylaxis will be on Eliquis for 30 days. Patient will follow-up with orthopedics in 2 weeks upon discharge. Labs were reviewed today and stable. Patient discharged by primary. Postoperative x-rays demonstrate stable left hip hemiarthroplasty with no evidence of periprosthetic fracture. Parth Choi, DO Orthopedic surgery
--- NOTE | 2024-01-19 15:38 | P.PN_ITS ---
Vitals/I&O/Wt Last Vital Signs Temp 97.7 F 01/19/24 11:12 Pulse 84 01/19/24 11:12 Resp 17 01/19/24 11:12 BP 101/65 01/19/24 11:12 Pulse Ox 94 01/19/24 11:12 O2 Del Method Room Air 01/19/24 11:12 O2 Flow Rate 3 01/18/24 20:00 01/19/24 01/19/24 01/19/24 06:59 14:59 22:59 Intake Total 250 / 1700 218 / 218 Output Total 300 / 1050 Balance -50 / 650 218 / 218 Weight last 48 hrs Weight 141 lb 11.2 oz Weight 141 lb 11.2 oz Weight 141 lb Weight 140 lb Physical Exam 2 Urinary Catheter Management: Cowart: Cath Placed During This Visit: yes Reason for Continuing Indwelling Catheter: Other Urinary Catheter Date of Insertion: 01/17/24 Urinary Catheter Time of Insertion: 21:47 Data 01/19/24 04:00 01/19/24 04:00 Micro: Microbiology 01/17/24 21:39 Urine Culture - Preliminary Urine,Clean Catch Coding Level of Care Code Acute Code for Chg Fwryan
[2024-01-19 15:45] VITALS: BP 101/65; PULSE 84; RESP 17; TEMP 36.5; O2SAT 94
== END 2024-01-19 12:42 | disposition intermediate care facility (04) | DRG 522 ==
LOC: ER 20:06 → MEDSURG 20:56
PROVIDERS: Internal Medicine; Student in an Organized Health Care Education/Training Program; Admitting Provider Internal Medicine; Emergency Provider Emergency Medicine; Family Provider Family Medicine; PCP Family Medicine; Visit Provider Internal Medicine
PROC: 0SRS0J9 Replacement of Left Hip Joint, Femoral Surface with Synthetic Substitute, Cemented, Open Approach (ICD-10-PCS; CPT 27125; principal; 2024-01-18 14:55)
DX: S72.012A Unspecified intracapsular fracture of left femur, initial encounter for closed fracture (principal); F03.92 Unspecified dementia, unspecified severity, with psychotic disturbance; E87.0 Hyperosmolality and hypernatremia; E03.9 Hypothyroidism, unspecified; E86.0 Dehydration; W19.XXXA Unspecified fall, initial encounter; Z99.3 Dependence on wheelchair; Y92.129 Unspecified place in nursing home as the place of occurrence of the external cause
CPT/HCPCS: 36415; 51702; 71045; 73502; 73552; 73562; 73700; 80053; 81003; 81015; 85025; 85610; 86850; 86900; 87086; 87426; 93005; 96372; 96374; 96375; 97162; 97530; 99285; C1713; C1776; J0131; J0690; J1644; J1650; J1885; J2270; J2371; J2405; J2704; J2710; J3010; J3370; J3490; J7030; J7121; P9045

== ENCOUNTER → 2024-02-03 08:59 | Outpatient (BNVA) | payer MEDICARE, MEDICAID, SELFPAY | PROVIDERS: Family Provider Family Medicine; PCP Family Medicine; Visit Provider Physician Assistant | DX: T84.021A Dislocation of internal left hip prosthesis, initial encounter; X58.XXXA Exposure to other specified factors, initial encounter; Y79.2 Prosthetic and other implants, materials and accessory orthopedic devices associated with adverse incidents; Z96.642 Presence of left artificial hip joint | CPT/HCPCS: 73502 ==

== ENCOUNTER 2024-02-03 10:40 | Day surgery (SDC) | payer MEDICARE, MEDICAID, SELFPAY ==
[2024-02-03] VITALS (15 sets, daily range): BP systolic 100–122; BP diastolic 64–86; PULSE 81–94; RESP 16–18; TEMP 36.5–36.6; O2SAT 90–98
--- NOTE | 2024-02-03 11:47 | W.ED.EXTPRO ---
HPI - Extremity Problem General: Chief complaint: Extremity Injury, Lower Stated complaint: dislocated hip sent from ortho Time Seen by Provider: 02/03/24 11:24 History of Present Illness: 78-year-old female. Proximal OAEs 2 and half weeks for a hip arthroplasty on the left. She lives in a alf has some mild cognitive dysfunction has a posterior dislocation was seen today by Dr. Nirmal Choi and directed to the emergency room for reduction. Related Data Home Medications Medication Instructions Recorded Confirmed loratadine 10 mg capsule 10 mg PO DAILY PRN allergies 06/22/19 02/03/24 acetaminophen 325 mg tablet 325 mg PO Q6H PRN pain or fever 01/17/24 02/03/24 bisacodyl 10 mg rectal suppository 10 mg ME DAILY PRN constipaiton 01/17/24 02/03/24 hydrocortisone 1 % topical cream 1 applic topical BID PRN itching 01/17/24 02/03/24 for rash levothyroxine 75 mcg tablet 75 mcg PO DAILY 01/17/24 02/03/24 magnesium hydroxide 400 mg/5 mL 400 mg PO DAILY PRN Constipation 01/17/24 02/03/24 oral suspension (Milk of Magnesia) nystatin 100,000 unit/gram topical 1 applic topical BID Rash 01/17/24 02/03/24 powder omeprazole 20 mg capsule,delayed 20 mg PO DAILY 01/17/24 02/03/24 release polyethylene glycol 3350 17 gram 17 g PO DAILY 01/17/24 02/03/24 oral powder packet (Miralax) quetiapine 100 mg tablet 150 mg PO BEDTIME 01/17/24 02/03/24 quetiapine 50 mg tablet (Seroquel) 50 mg PO DAILY 01/17/24 02/03/24 sodium phosphates 19 gram-7 118 ml ME DAILY PRN Constipation 01/17/24 02/03/24 gram/118 mL enema (Fleet Enema) citalopram 10 mg tablet 10 mg PO DAILY 02/03/24 02/03/24 food supplemt, lactose-reduced 1 ea PO BID 02/03/24 02/03/24 Previous Rx's Medication Instructions Recorded apixaban 2.5 mg tablet (Eliquis) 2.5 mg PO BID #60 tabs 01/19/24 hydrocodone 5 mg-acetaminophen 325 1 tab PO BID PRN Pain, Severe #10 01/19/24 mg tablet tabs sennosides 8.6 mg-docusate sodium 2 tab PO BID #20 tabs 01/19/24 50 mg tablet (Stool Softener-Laxative) left hip abduction brace #1 ea 02/03/24 Allergies Allergy/AdvReac Type Severity Reaction Status Date / Time No Known Allergies Allergy Verified 02/03/24 09:06 Review of Systems General: Reports: ROS unobtainable due to mental status PFSH ED PFSH: Medical History (Updated 02/03/24 @ 14:50 by Kalia Ramires DO) Hypernatremia Dehydration Fall Dementia Closed fracture of left hip Mental status alteration Hypothyroid Dementia with psychosis Dyslipidemia Surgical History (Updated 02/03/24 @ 14:50 by Kalia Ramires DO) S/P cataract surgery Surgical history unknown Social History Smoking and tobacco/nicotine status: never used tobacco/nicotine Alcohol intake: never Substance/Drug Use: never Caregiver/support person: Yes Lives independently: No Household members: caregiver Physical Exam HENMT: COMMON NORMALS: normocephalic, atraumatic and hearing grossly normal bilaterally HEAD & SCALP: normocephalic and atraumatic Resp: COMMON NORMALS: normal respiratory effort, No retractions, No use of accessory muscles and clear to auscultation bilaterally AUSCULTATION: clear to auscultation bilaterally Cardio: COMMON NORMALS: regular rate, regular rhythm and No murmurs present (Cardio) RATE: regular rate RHYTHM: regular rhythm GI: COMMON NORMALS: Soft to palpation and No hepatosplenomegaly present AUSCULTATION: Yes normoactive bowel sounds PALPATION: Yes Soft to palpation, No Tenderness to palpation present (GI), No Guarding due to palpation present (GI) and Yes No hepatosplenomegaly present Extremity: OTHER: Obvious deformity of the left hip consistent with posterior hip dislocation confirmed on x-rays done at Dr. Choi's office Skin: COMMON NORMALS: no rashes or lesions noted GENERAL SKIN EXAM: no rashes or lesions noted Procedures Procedural Sedation Indication: fracture/dislocation reduction ASA Class: I Time of Last PO Intake: 08:00 Preparation: production service manager applied, pulse oximeter, supplemental O2 applied, suction/airway equipment at bedside and IV secured IV Propofol dose (mg): 60 (Patient given initial 30 mg, and then to 15 mg doses for a total of 60) Complications: hypoxia Interventions: oxygen applied and airway repositioned Course Vital Signs: Vital signs: Vital Signs Temperature 97.7 F 02/03/24 13:48 Pulse Rate 81 02/03/24 14:26 Respiratory Rate 18 02/03/24 13:48 Blood Pressure 108/75 02/03/24 14:26 Pulse Oximetry 98 02/03/24 14:26 Oxygen Delivery Me thod Room Air 02/03/24 13:48 MDM - Extremity (Nontraumatic) Medical Decision Making Patient is a posterior dislocation of the hip Dr. [facility] he wished to try reduction. I provided conscious sedation. She is initially given 30 mg of propofol and then to 15 mg doses subsequent to that. She did require supplemental oxygen repositioning of her airways and maintained her sats normal throughout recovered well unfortunately we are unable to reduce the hip fracture patient will be taken to surgery for full paralytics under general anesthesia. Dr. Choi will manage. Lab Data Radiology Impressions Hip X-Ray 02/03/24 12:56 Impression: The left hip prostheses remains dislocated. All radiology interpretation(s) finalized by discharge ED provider radiology interpretation(s): Posterior hip dislocation Discharge Plan Discharge Patient Disposition: Placed in Observation Clinical Impression: Dislocation of internal left hip prosthesis, Status post hip hemiarthroplasty Condition: Stable Prescriptions: No Action loratadine 10 mg capsule 10 mg PO DAILY PRN (Reason: allergies) (DME) left hip abduction brace See Rx Instructions .Route .MEDSUPPLY Qty: 1 0RF Rx Instructions: As directed polyethylene glycol 3350 [Miralax] 17 gram Powder In Packet 17 g PO DAILY quetiapine 100 mg Tablet 150 mg PO BEDTIME levothyroxine 75 mcg Tablet 75 mcg PO DAILY omeprazole 20 mg Capsule,Delayed Release(Dr/Ec) 20 mg PO DAILY quetiapine [Seroquel] 50 mg Tablet 50 mg PO DAILY acetaminophen 325 mg Tablet 325 mg PO Q6H PRN (Reason: pain or fever) magnesium hydroxide [Milk of Magnesia] 400 mg/5 mL Suspension 400 mg PO DAILY PRN (Reason: Constipation) hydrocortisone 1 % Cream 1 applic TOPICAL BID PRN (Reason: itching for rash) bisacodyl 10 mg Suppository 10 mg ME DAILY PRN (Reason: constipaiton) Fleet Enema 19-7 gram/118 mL Enema 118 ml ME DAILY PRN (Reason: Constipation) nystatin 100,000 unit/gram Powder 1 applic TOPICAL BID Rx Instructions: cleanse beneth right breast with soap and water, pat dry, apply powder BID until healed for rash sennosides-docusate sodium [Stool Softener-Laxative] 8.6-50 mg Tablet 2 tab PO BID Qty: 20 0RF Eliquis 2.5 mg tablet 2.5 mg PO BID Qty: 60 0RF hydrocodone-acetaminophen 5-325 mg Tablet 1 tab PO BID PRN (Reason: Pain, Severe) Qty: 10 0RF citalopram 10 mg tablet 10 mg PO DAILY TwoCal HN Liquid 1 ea PO BID Referrals: Cheryl Sullivan DO [Primary Care Provider] - Coding Level of Care Code ED [facility] Caretaker for Ambrose Jennings
[2024-02-03] MEDS: LORazepam 2 mg/mL INJ 1 mL IM (12:15)
--- NOTE | 2024-02-03 12:56 | XR_ITS ---
WS: [id number] Examination: XR hip LT 2-3V wo/w pel* [id number] Reason for Exam: hip dislocation Date: 02/03/2024, 12:53 p.m. Comparison: 02/03/2024, 9:56 a.m. Findings: Again the superiorly dislocated left hip prosthesis is noted. No displaced fracture is identified XR/XR hip LT 1V wo/w pel [id number] Impression: The left hip prostheses remains dislocated.
[2024-02-03] MEDS: propofol 10 mg/mL SDV 20 mL 100 MG IVP (13:04)
--- NOTE | 2024-02-03 13:21 | PM.CONSULT ---
Providers/Reason For Consult Consulting Physician/Specialty*: Parth Choi DO/orthopedic surgery Reason for Consult*: Left hip periprosthetic dislocation Requesting Physician: Dr. Ramires Primary Care Provider: Cheryl Sullivan DO History of Present Illness History of Present Illness Larisa Cobian is a 78 year old female who is demented who sustained a left hip femoral neck fracture was brought to the emergency department on 01/18/2024 where patient was seen and evaluated by orthopedics with her displaced femoral neck fracture we talked with her POA about treatment options doing nothing for surgical intervention talked about a Girdlestone versus hip hemiarthroplasty. Through shared decision making we elected proceed with a left hip hemiarthroplasty. She was seen in our office today by my PA and x-rays were found and patient was found to have dislocated her left hip hemiarthroplasty was sent to the emergency department unfortunately attempts were made in the emergency department but given her age and frailty unsuccessful closed reduction attempts. At this point in time recommending patient be taken to the OR emergently for left hip closed reduction versus open reduction and possible implant removal for a Girdlestone Review of Systems General: Reports: ROS unobtainable due to mental status Medications/Allergies Home Medications Medication Instructions Recorded Confirmed Last Taken Type loratadine 10 mg capsule 10 mg PO DAILY PRN allergies 06/22/19 02/03/24 Unknown History acetaminophen 325 mg tablet 325 mg PO Q6H PRN pain or fever 01/17/24 02/03/24 01/17/24 07:04 History bisacodyl 10 mg rectal suppository 10 mg NC DAILY PRN constipaiton 01/17/24 02/03/24 Unknown History hydrocortisone 1 % topical cream 1 applic topical BID PRN itching 01/17/24 02/03/24 Unknown History for rash levothyroxine 75 mcg tablet 75 mcg PO DAILY 01/17/24 02/03/24 01/17/24 07:02 History magnesium hydroxide 400 mg/5 mL 400 mg PO DAILY PRN Constipation 01/17/24 02/03/24 Unknown History oral suspension (Milk of Magnesia) nystatin 100,000 unit/gram topical 1 applic topical BID Rash 01/17/24 02/03/24 01/17/24 18:36 History powder omeprazole 20 mg capsule,delayed 20 mg PO DAILY 01/17/24 02/03/24 01/17/24 07:02 History release polyethylene glycol 3350 17 gram 17 g PO DAILY 01/17/24 02/03/24 01/17/24 07:02 History oral powder packet (Miralax) quetiapine 100 mg tablet 150 mg PO BEDTIME 01/17/24 02/03/24 02/02/24 History quetiapine 50 mg tablet (Seroquel) 50 mg PO DAILY 01/17/24 02/03/24 02/03/24 History sodium phosphates 19 gram-7 118 ml [place] DAILY PRN Constipation 01/17/24 02/03/24 Unknown History gram/118 mL enema (Fleet Enema) apixaban 2.5 mg tablet (Eliquis) 2.5 mg PO BID #60 tabs 01/19/24 02/03/24 02/03/24 Rx hydrocodone 5 mg-acetaminophen 325 1 tab PO BID PRN Pain, Severe #10 01/19/24 02/03/24 Unknown Rx mg tablet tabs sennosides 8.6 mg-docusate sodium 2 tab PO BID #20 tabs 01/19/24 02/03/24 02/03/24 Rx 50 mg tablet (Stool Softener-Laxative) citalopram 10 mg tablet 10 mg PO DAILY 02/03/24 02/03/24 02/03/24 History food supplemt, lactose-reduced 1 ea PO BID 02/03/24 02/03/24 Unknown History left hip abduction brace #1 ea 02/03/24 02/03/24 Unknown Rx Allergies Allergy/AdvReac Type Severity Reaction Status Date / Time No Known Allergies Allergy Verified 02/03/24 09:06 PFSH Acute PFSH: Medical History (Updated 02/03/24 @ 10:37 by KEYA Pond) Hypernatremia Dehydration Fall Dementia Closed fracture of left hip Mental status alteration Hypothyroid Dementia with psychosis Dyslipidemia Surgical History (Updated 02/03/24 @ 10:37 by KEYA Pond) S/P cataract surgery Surgical history unknown Social History Smoking and tobacco/nicotine status: never used tobacco/nicotine Alcohol intake: never Substance/Drug Use: never Caregiver/support person: Yes Lives independently: No Household members: caregiver Vitals/I&O/Wt Last Vital Signs Pulse 90 02/03/24 12:19 Resp 18 02/03/24 11:05 BP 110/75 02/03/24 12:19 Pulse Ox 93 02/03/24 12:19 O2 Del Method Room Air 02/03/24 11:05 Weight last 48 hrs Weight 128 lb Physical Exam Narrative: Left hip examination: Examination limited secondary to patient's dementia. She is accompanied by staff from assisted. Patient is demented unable to follow any commands for motor or sensory her left lower extremity is shortened and internally rotated she is unable to follow commands for toes her incision site is healing well approximately and bonnie in place no apparent signs of infection at this time. Abduction pillow is down at the ankles. Data Xray Ortho: My impression: X-rays from the office today demonstrate a left hip periprosthetic hip dislocation as well as recheck x-rays after multiple attempts of close reduction Emergency Department demonstrate once again residual persistent left hip periprosthetic dislocation. A&P Assessment and plan (1) Dislocation of internal left hip prosthesis: (2) Status post hip hemiarthroplasty: Plan N.p.o. Attempts made in the emergency department for left hip closed reduction under conscious sedation were unsuccessful X-rays reviewed Called and spoke with MANISH talked about treatment options given persistent dislocation would recommend taken to the OR emergently for left hip closed reduction course possible open reduction possible implant removal for Girdlestone procedure. She understands the ins outs procedure the risk benefits complication alternatives with surgery. Risk of surgically not limited to make a better make it worse, persistent hip dislocations, infection, further OR visits, periprosthetic fracture. At this point in time we talked about trying to just achieve this through closed reduction which I think will potentially be more successful in the OR given her frail bone and inability to tolerate much in the way of anesthetic with conscious sedation emergency department feel hopefully with muscles relax this can just be reduced closed and in place her knee immobilizer plan on getting sent for hip abduction brace. Otherwise I feel as though she would better benefit from open reduction and likely removal of the implant prosthesis but this would then equate to a Girdlestone procedure and we would no longer have any worries or concerns from dislocation risks as given her dementia she is inability to follow her posterior hip precautions at this point time MANISH understands and agrees with current plan. All questions been answered at this time. Procedure will be for a left hip closed reduction versus open reduction with possible implant removal for Girdlestone procedure. Procedure in detail: Consent was obtained and timeout performed for the conscious sedation with left hip closed reduction. Once patient had received appropriate conscious sedation the hemipelvis was stabilized by my learning and development assistant and multiple attempts were made for the posterior left hip dislocation and were unsuccessful. I did take a final x-ray to confirm this is still dislocated, patient was awakened from conscious sedation and plan to take to the OR emergently. Coding Level of Care Code Acute Code for Chg Fwd Diagnoses Dislocation of internal left hip prosthesis T84.021A Status post hip hemiarthroplasty Z96.649
--- NOTE | 2024-02-03 13:28 | ANES.PREANE2 ---
Pre-Anesthetic Assessment Height/Weight: Height 5 ft Weight 128 lb Pulse Resp BP Pulse Ox O2 Del Method 90 18 110/75 93 Room Air 02/03/24 12:19 02/03/24 11:05 02/03/24 12:19 02/03/24 12:19 02/03/24 11:05 Preop Diagnosis: Left periprosthetic hip dislocation Operation Date: 02/03/24 14:00 Proposed Procedures p Closed Reduction Hip vs ORIF(Left) - Parth B[place], DO Social No alcohol and No tobacco Exam Severe dementia. Nonverbal Airway Submandibular: within normal limits Cervical ROM: within normal limits Mallampati: Class III Dentition: false Anesthetic Plan ASA status: 3 Anesthesia: General Other: Patient recently had a hip fracture repaired 2 weeks ago. Patient presents with hip out of place today. Severe dementia at baseline, THIRD OFFICER from detention is at bedside Labs reviewed Adequate IV access No reported change in medical history since previous anesthetic Plan for GETA Medications/Allergies Home Medications Medication Instructions Recorded Confirmed Last Taken Type loratadine 10 mg capsule 10 mg PO DAILY PRN allergies 06/22/19 02/03/24 Unknown History acetaminophen 325 mg tablet 325 mg PO Q6H PRN pain or fever 01/17/24 02/03/24 01/17/24 07:04 History bisacodyl 10 mg rectal suppository 10 mg [place] DAILY PRN constipaiton 01/17/24 02/03/24 Unknown History hydrocortisone 1 % topical cream 1 applic topical BID PRN itching 01/17/24 02/03/24 Unknown History for rash levothyroxine 75 mcg tablet 75 mcg PO DAILY 01/17/24 02/03/24 01/17/24 07:02 History magnesium hydroxide 400 mg/5 mL 400 mg PO DAILY PRN Constipation 01/17/24 02/03/24 Unknown History oral suspension (Milk of Magnesia) nystatin 100,000 unit/gram topical 1 applic topical BID Rash 01/17/24 02/03/24 01/17/24 18:36 History powder omeprazole 20 mg capsule,delayed 20 mg PO DAILY 01/17/24 02/03/24 01/17/24 07:02 History release polyethylene glycol 3350 17 gram 17 g PO DAILY 01/17/24 02/03/24 01/17/24 07:02 History oral powder packet (Miralax) quetiapine 100 mg tablet 150 mg PO BEDTIME 01/17/24 02/03/24 02/02/24 History quetiapine 50 mg tablet (Seroquel) 50 mg PO DAILY 01/17/24 02/03/24 02/03/24 History sodium phosphates 19 gram-7 118 ml [place] DAILY PRN Constipation 01/17/24 02/03/24 Unknown History gram/118 mL enema (Fleet Enema) apixaban 2.5 mg tablet (Eliquis) 2.5 mg PO BID #60 tabs 01/19/24 02/03/24 02/03/24 Rx hydrocodone 5 mg-acetaminophen 325 1 tab PO BID PRN Pain, Severe #10 01/19/24 02/03/24 Unknown Rx mg tablet tabs sennosides 8.6 mg-docusate sodium 2 tab PO BID #20 tabs 01/19/24 02/03/24 02/03/24 Rx 50 mg tablet (Stool Softener-Laxative) citalopram 10 mg tablet 10 mg PO DAILY 02/03/24 02/03/24 02/03/24 History food supplemt, lactose-reduced 1 ea PO BID 02/03/24 02/03/24 Unknown History left hip abduction brace #1 ea 02/03/24 02/03/24 Unknown Rx Allergies Allergy/AdvReac Type Severity Reaction Status Date / Time No Known Allergies Allergy Verified 02/03/24 09:06 [facility] Anesthesia Medical History (Updated 02/03/24 @ 10:37 by KEYA Pond) Hypernatremia Dehydration Fall Dementia Closed fracture of left hip Mental status alteration Hypothyroid Dementia with psychosis Dyslipidemia Surgical History (Updated 02/03/24 @ 10:37 by KEYA Pond) S/P cataract surgery Surgical history unknown Social History Smoking and tobacco/nicotine status: never used tobacco/nicotine Alcohol intake: never Substance/Drug Use: never Caregiver/support person: Yes Lives independently: No Household members: caregiver Data Anesthesia Cardiac Studies: No Data to Display
--- NOTE | 2024-02-03 14:38 | W.PM.BPON ---
Date of Procedure: 02/03/2024 Surgeon: Parth Choi DO Patient Services Representative(s): Ap Choi PA-C Procedure(s) performed: Left hip closed reduction Findings of the procedure(s): Patient was found to have a left hip periprosthetic dislocation. No appreciable fracture is seen. Implant stable under fluoroscopic live imaging. Patient had a posterior superior dislocation underwent reduction no issues or complications. She is recovering well in PACU and plan to return to rehab facility. [place] were removed Steri-Strips applied and a new Silverlon dressing applied Estimated blood loss: 0 Specimen(s) removed: None Post-operative diagnosis: Left hip periprosthetic dislocation
--- NOTE | 2024-02-03 14:40 | P.OP_ITS ---
Operative Report Date of procedure: February 03, 2024 Pre-op diagnosis: Left hip periprosthetic dislocation Post-op diagnosis: Same Procedure done: Left hip closed reduction Surgeon: Parth Choi DO Office Machine Embossograph Operator: Ap Choi PA-C PA was necessary for assistance in this case while manually holding down the hemipelvis as well as to assist with left hip closed reduction Anesthesia: General Estimated blood loss: 0 IV fluids: See anesthesia record Complications: None Findings: See operative report narrative Condition: stable Disposition: other (Discharge back to correction facility today) Brief History: Patient is a 78-year-old female severely demented was brought into our office for 2-week follow-up appointment on x-rays was found to have periprosthetic left hip dislocation of the left hip hemiarthroplasty she is 2 weeks out from her procedure her incision appears to be healing well no signs of infection. She subsequently sent down to the emergency department for attempted closed reduction under conscious sedation and unfortunately was unsuccessful as a result plan was to take patient to the OR emergently for left hip closed reduction versus open reduction and possible implant removal for Girdlestone procedure. I then subsequently called patient's POA and explained her current situation as well as diagnosis and through shared decision making she elects to agree to proceed with surgical intervention today. All questions have been answered at this time she understands the ins and outs procedure risk benefits complication alternatives to surgery and through shared decision making POA elects proceed with surgical intervention for patient. Procedure: Patient was then subsequently seen evaluate in the preoperative holding area. Consent was reviewed and signed with POA over the phone and subsequently the left hip was then signed. Patient was then seen evaluated by anesthesia was cleared for surgery is taken back to the operative suite. Patient then subsequently transported onto the OR table in supine position all bony prominences well-padded patient appropriate secured to the bed. Patient then subsequently underwent anesthesia per the anesthesia department. Once patient was appropriately anesthetized final timeout was performed. At this point in time we held on antibiotics unless an open procedure was needed to be performed. Clinically patient was found to have a hip that was flexed and internally rotated. I subsequently brought in the fluoroscopic C arm to evaluate the williams ent's left hip this confirmed to be a posterior superior hip dislocation. At this point time my certified dental assistant held down the patient's hemipelvis. I subsequently flexed the hip up to slightly greater than 90 degrees as well as then adducted the hip across midline had gentle traction to engage the bipolar head this was visualized under fluoroscopic imaging once this was in appropriate position I then subsequently began to externally rotate the hip and had a loud palpable clunk and multiple fluoroscopic images were placed to visualize a successful hip reduction there is no evidence of periprosthetic implant fracture or complications. This point time patient's leg lengths were appropriate. I subsequently held this place while my certified dental assistant helped me place a knee immobilizer to secure the knee and prevent from hip flexion to avoid possibilities of redislocating. I then subsequently appropriately placed the abduction pillow and secured this to the other leg. Next the patient did have bonnie in place in 2 weeks and this is healing well subsequently clean the incision and underwent staple removal and Steri-Strips were applied with a new Silverlon bandage. Patient was then awakened from anesthesia extubated and taken to PACU in stable condition. Disposition: Patient taken to PACU in stable condition she recovering well I did speak with a player services representative of patient's nursing facility as well as with her POA and expressed plan given she is recovering well and appearing back to her baseline in PACU feel she is stable to return to her nursing facility today and not require any hospitalization given successful closed reduction was performed understand strict adherence to patient's posterior hip precautions as unfortunately she is demented and unable to follow these on her own. She is in a knee immobilizer and abduction pillow. Will have patient follow-up with us in 2 weeks. Appropriate discharge instructions given and placed in patient's chart. Patient's POA and nursing facility understand agree with current plan. Questions answered.
--- NOTE | 2024-02-03 15:09 | ANE.PACU2 ---
Inpatient post-anesthesia follow up: Airway intact: Yes Vital signs: Temperature 97.7 F Pulse Rate 90 Respiratory Rate 16 Blood Pressure 122/72 Pulse Oximetry 91 Oxygen Delivery Me thod Room Air Oxygen Flow Rate 4 Fraction of Inspir ed Oxygen Hydration adequate: Yes Nausea and vomiting: No Pain level: 1 Mental status: Baseline
[2024-02-03] MEDS: fentaNYL 50 mcg/mL INJ 2mL IVP (15:36)
--- NOTE | 2024-02-03 16:04 | SUR.PHASEII ---
Patient waiting for [facility] ambulance to get patient for transport back to [facility]. Patient has knee immobilizer on left knee and hip wedge pillow between knees and is unable to be put back into moises chair brought with her from assisted living. [facility] has been contacted and says they will come get her for transport.
--- NOTE | 2024-02-03 17:10 | SUR.PHASEII ---
Patient taken by stretcher via [facility] ambulance for ride back to assisted living. patient awake and at baseline alertness. VSS. knee immobilizer and hip wedge in place. report given to ambulance staff.
== END 2024-02-03 17:10 | disposition skilled nursing facility (03) ==
LOC: ER 14:50 → OR 14:52
PROVIDERS: Student in an Organized Health Care Education/Training Program; Emergency Provider Family Medicine; PCP Family Medicine; Visit Provider Surgery
DX: T84.021A Dislocation of internal left hip prosthesis, initial encounter (principal); E03.9 Hypothyroidism, unspecified; Z96.642 Presence of left artificial hip joint; Z79.899 Other long term (current) drug therapy
CPT/HCPCS: 27266; 73501; 73502; 76000; 96372; 99024; J0330; J2060; J2704; J3010; J3490

== ENCOUNTER → 2024-02-21 15:48 | Outpatient (BNVA) | payer MEDICARE, MEDICAID, SELFPAY | PROVIDERS: PCP Family Medicine; Visit Provider Physician Assistant | DX: Z96.641 Presence of right artificial hip joint (principal); T84.021A Dislocation of internal left hip prosthesis, initial encounter; X58.XXXA Exposure to other specified factors, initial encounter | CPT/HCPCS: 73502; 99024 ==

== ENCOUNTER → 2024-03-21 09:11 | Outpatient (BNVA) | payer MEDICARE, MEDICAID, SELFPAY | PROVIDERS: PCP Family Medicine; Visit Provider Physician Assistant | DX: S72.009A Fracture of unspecified part of neck of unspecified femur, initial encounter for closed fracture (principal); Z96.649 Presence of unspecified artificial hip joint; Z98.890 Other specified postprocedural states; K56.41 Fecal impaction | CPT/HCPCS: 73502 ==

== ENCOUNTER → 2024-05-17 13:23 | Outpatient (BNVA) | payer MEDICARE, MEDICAID, SELFPAY | PROVIDERS: PCP Family Medicine; Visit Provider Physician Assistant | DX: Z96.642 Presence of left artificial hip joint | CPT/HCPCS: 73502; 99213 ==

== ENCOUNTER → 2024-08-15 14:05 | Outpatient (BNVA) | payer MEDICARE, MEDICAID, SELFPAY | PROVIDERS: PCP Family Medicine; Visit Provider Physician Assistant | DX: Z96.642 Presence of left artificial hip joint (principal) | CPT/HCPCS: 73502; 99213 ==

== ENCOUNTER 2025-01-13 13:12 | Emergency (ER) | payer MEDICARE, MEDICAID, SELFPAY ==
[2025-01-13 13:13] VITALS: BP 132/73; PULSE 68; RESP 16; TEMP 36.9; O2SAT 95; BMI 21.4
--- NOTE | 2025-01-13 13:18 | CTR_ITS ---
PROCEDURE INFORMATION: Exam: CT Cervical Spine Without Contrast Exam date and time: 01/13/2025 1:35 PM Age: 79 years old Clinical indication: Injury or trauma; Fall; Blunt trauma. No history of surgery is provided. TECHNIQUE: Imaging protocol: Computed tomography of the cervical spine without contrast. [id number](s) are provided. Radiation optimization: All CT scans at this facility use at least one of these dose optimization techniques: automated exposure control; mA and/or kV adjustment per patient size (includes targeted exams where dose is matched to clinical indication); or iterative reconstruction. COMPARISON: 1. CR XR chest 1V portable [id number] 01/17/2024 8:[address] head wo con* [id number] 01/13/2025 1:[address] facial bones wo con* [id number] 01/13/2025 1:35 PM. No previous cervical spine studies are currently available to evaluate for stability or interval change. RADIATION DOSE METRICS: Total DLP (mGy-cm): 180.9 FINDINGS: Bones: No displaced cervical spine fracture or dislocation is appreciated. There are multilevel degenerative changes present with some spurring and disc space narrowing along with some facet, uncovertebral hypertrophy. Discs/Spinal canal/Neural foramina: No hyperdense spinal canal fluid is appreciated. Lungs: No lobar consolidation is appreciated.There is some subsegmental atelectasis versus post inflammatory reticulonodular scarring demonstrated.No pneumothorax is appreciated. There is some heterogeneity of the pulmonary parenchyma overall similar. Vasculature: Atherosclerotic vascular changes are demonstrated. Soft tissues: No radiopaque foreign body or subcutaneous emphysema is appreciated. No subcutaneous fluid collections are appreciated.No abnormal prevertebral soft tissue thickening is appreciated. There is some motion artifact present. No other significant interval changes are appreciated. CT/CT cervical spin wo con* [id number] IMPRESSION: There are multilevel degenerative changes of the cervical spine present with no fracture or dislocation appreciated.
--- NOTE | 2025-01-13 13:18 | CTR_ITS ---
PROCEDURE INFORMATION: Exam: CT Head Without Contrast Exam date and time: 01/13/2025 1:35 PM Age: 79 years old Clinical indication: Injury or trauma; Fall; Blunt trauma (contusions or hematomas); Consciousness not specified TECHNIQUE: Imaging protocol: Computed tomography of the head without contrast. [id number](s) are provided. Radiation optimization: All CT scans at this facility use at least one of these dose optimization techniques: automated exposure control; mA and/or kV adjustment per patient size (includes targeted exams where dose is matched to clinical indication); or iterative reconstruction. Other technique: Axial images are available with sagittal and coronal reconstruction views. Automated dose exposure control is utilized. The DLP is 180.9. COMPARISON: 1. CT facial bones wo con* [id number] 01/13/2025 1:[address] cervical spin wo con* [id number] 01/13/2025 1:[address] head is currently available to evaluate for interval change or stability. RADIATION DOSE METRICS: Total DLP (mGy-cm): 878.5 FINDINGS: Brain: There are moderate cerebral atrophic changes overall.There are chronic periventricular white matter changes present.There are central lacunar changes demonstrated.No mass effect or layering hemorrhage is appreciated. Frank, white matter differentiation appears maintained. Cerebral ventricles: There is ventricular enlargement which appears to be out of proportion overall to the volume loss therefore suggestive of hydrocephalus. Paranasal sinuses: The included paranasal sinuses appear well-aerated overall. Mastoid air cells: The mastoid air cells appear well-aerated overall. There does appear to be some developmental hypoaeration along with marginal mucosal thickening more so inferiorly on the left. Orbital cavities: Symmetric appearance of the orbital soft tissues is demonstrated. Bones: No displaced cranial fracture or dislocation is appreciated. There does appear to be some undulation of the nasal bones indicative nasal bone nondisplaced fractures. Soft tissues: No radiopaque foreign body or diffuse subcutaneous emphysema is appreciated. There does appear to be some questionable skin undulation possible laceration anteriorly. Vasculature: Atherosclerotic vascular changes are demonstrated. There is some motion artifact present. CT/CT head wo con* [id number] IMPRESSION: No mass effect, layering hemorrhage or cranial fracture is demostrated. No acute intracranial changes are appreciated. There does appear to be some chronic overall volume loss as well as hydrocephalus.
--- NOTE | 2025-01-13 13:18 | CTR_ITS ---
PROCEDURE INFORMATION: Exam: CT Maxillofacial Without Contrast Exam date and time: 01/13/2025 1:35 PM Age: 79 years old Clinical indication: Injury or trauma; Fall; Blunt trauma (contusions or hematomas); Orbit/periorbital; Left; Additional info: Fall/left eye injury TECHNIQUE: Imaging protocol: Computed tomography of the face without contrast. [id number](s) are provided. Radiation optimization: All CT scans at this facility use at least one of these dose optimization techniques: automated exposure control; mA and/or kV adjustment per patient size (includes targeted exams where dose is matched to clinical indication); or iterative reconstruction. COMPARISON: 1. CT head wo con* [id number] 01/13/2025 1:[address] cervical spin wo con* [id number] 01/13/2025 1:35 PM. No previous maxillofacial studies are currently available. RADIATION DOSE METRICS: Total DLP (mGy-cm): 509.8 FINDINGS: Paranasal sinuses: The included paranasal sinuses appear well-aerated overall. Orbital cavities: Symmetric appearance of the orbital soft tissues is demonstrated. Mastoid air cells: The mastoid air cells appear well-aerated overall. There does appear to be some developmental hypoaeration, mucosal thickening inferiorly on the left predominantly. Nasal cavity: There is some undulation and spurring of the nasal septum which overall appears grossly intact. The ostiomeatal units appear grossly patent overall. No significant nasal cavity fluid levels are currently appreciated. Teeth: There are some chronic periodontal related changes overall present. Bones: No displaced fracture or dislocation is appreciated. There is however some undulation, deviation of the nasal bones indicative of nasal bone fractures with slight angulation overall to the right as well as some adjacent soft tissue swelling. There are some calcifications of the anterior maxilla, mandibular margins. There is some air present adjacent although could also represent under the lip related changes. Soft tissues: No radiopaque foreign body or diffuse subcutaneous emphysema is appreciated. There is some motion limiting artifact present. CT/CT facial bones wo con* [id number] IMPRESSION: 1. There is some nondisplaced nasal bone fracture appearance overall with some anterior soft tissue swelling. 2. Symmetric appearance of the orbital soft tissues is demonstrated.
[2025-01-13 13:32] VITALS: BP 110/69; PULSE 67; O2SAT 94
--- NOTE | 2025-01-13 14:12 | W.ED.WOUNDLC ---
HPI - Wound/Laceration General: Chief Complaint: Wound/Laceration Stated Complaint: facial trauma s/p fall Time Seen by Provider: 01/13/25 13:12 Source: EMS Mode of arrival: EMS Limitations: altered mental status (Chronic dementia) History of Present Illness: Patient is an 79-year-old female who presents the emergency department by ambulance from skilled nursing due to a fall. Reportedly rolled out of bed and struck her head on nightstand, this caused skin tear/abrasion to left infraorbital region that was bleeding upon EMS arrival but has since stopped. She is not on a blood thinner, reportedly did not lose consciousness and this was a witnessed fall. She is chronically demented, is only alert and oriented to her name, no reported change from baseline. The bleeding had been controlled with direct pressure, patient had not indicated to myself, EMS, or SNF staff that anything else was bothering her. Vitals are stable at this time. Review of systems unobtainable due to her demented status. Onset (ago): minute(s) Location: face Place: other (half-way) Context: accidental Related Data Home Medications ?Medication ?Instructions ?Recorded ?Confirmed loratadine 10 mg capsule 10 mg PO DAILY PRN allergies 06/22/19 08/15/24 acetaminophen 325 mg tablet 325 mg PO Q6H PRN pain or fever 01/17/24 08/15/24 bisacodyl 10 mg rectal suppository 10 mg [place] DAILY PRN constipaiton 01/17/24 08/15/24 hydrocortisone 1 % topical cream 1 applic topical BID PRN itching 01/17/24 08/15/24 for rash levothyroxine 75 mcg tablet 75 mcg PO DAILY 01/17/24 08/15/24 magnesium hydroxide 400 mg/5 mL 400 mg PO DAILY PRN Constipation 01/17/24 08/15/24 oral suspension (Milk of Magnesia) nystatin 100,000 unit/gram topical 1 applic topical BID Rash 01/17/24 08/15/24 powder omeprazole 20 mg capsule,delayed 20 mg PO DAILY 01/17/24 08/15/24 release polyethylene glycol 3350 17 gram 17 g PO DAILY 01/17/24 08/15/24 oral powder packet (Miralax) quetiapine 100 mg tablet 150 mg PO BEDTIME 08/20/24 03/19/25 quetiapine 50 mg tablet (Seroquel) 50 mg PO DAILY 01/17/24 08/15/24 sodium phosphates 19 gram-7 118 ml [place] DAILY PRN Constipation 01/17/24 08/15/24 gram/118 mL enema (Fleet Enema) citalopram 10 mg tablet 10 mg PO DAILY 02/03/24 08/15/24 food supplemt, lactose-reduced 1 ea PO BID 02/03/24 08/15/24 Previous Rx's ?Medication ?Instructions ?Recorded apixaban 2.5 mg tablet (Eliquis) 2.5 mg PO BID #60 tabs 01/19/24 hydrocodone 5 mg-acetaminophen 325 1 tab PO BID PRN Pain, Severe #10 01/19/24 mg tablet tabs sennosides 8.6 mg-docusate sodium 2 tab PO BID #20 tabs 01/19/24 50 mg tablet (Stool Softener-Laxative) left hip abduction brace #1 ea 02/03/24 Allergies Allergy/AdvReac Type Severity Reaction Status Date / Time No Known Allergies Allergy Verified 08/15/24 14:56 Review of Systems General: Reports: ROS unobtainable due to mental status PFSH ED PFSH: Medical History Hypernatremia Dehydration Fall Dementia Closed fracture of left hip Mental status alteration Hypothyroid Dementia with psychosis Dyslipidemia Surgical History S/P cataract surgery Surgical history unknown Social History Smoking and tobacco/nicotine status: never used tobacco/nicotine Alcohol intake: never Substance/Drug Use: never Caregiver/support person: Yes Lives independently: No Household members: caregiver Physical Exam Const: COMMON NORMALS: alert EXAM LIMITATIONS: altered mental status (Chronic) GENERAL APPEARANCE: comfortable ORIENTATION/CONSCIOUSNESS: Yes awake and Yes oriented to person HENMT: OTHER: Large skin tear/abrasion to left infraorbital region with no active bleeding. Negative Segovia sign and negative raccoon eyes. No palpable skull fracture. No other signs of face head or neck trauma. Eye: COMMON NORMALS: Equal, round and reactive pupils present, EOMs intact bilaterally and conjunctivae normal CONJUNCTIVA: Yes conjunctivae normal PUPIL: Yes Equal, round and reactive pupils present OTHER: Specifically, the left eye appears unaffected Neck/C-Spine: COMMON NORMALS: full ROM and supple CERVICAL SPINE: Yes cervical ROM normal Chest: COMMONS NORMALS: normal inspection of the chest and normal palpation of entire chest wall Resp: COMMON NORMALS: normal respiratory effort, No retractions, No use of accessory muscles and clear to auscultation bilaterally AUSCULTATION: clear to auscultation bilaterally Cardio: COMMON NORMALS: regular rate and regular rhythm RATE: regular rate RHYTHM: regular rhythm GI: COMMON NORMALS: Soft to palpation and non-tender PALPATION: Yes Soft to palpation Back/Pelvis: COMMON NORMALS: no thoracic nor lumbar tenderness and thoraco-lumbar ROM normal Extremity: COMMON NORMALS: normal to inspection, full ROM and capillary refill normal Neuro: COMMON NORMALS: moves all extremities, no focal motor deficits and no sensory deficits noted SENSORIUM/ORIENTATION: Yes alert and Yes oriented to person Course Vital Signs: Vital signs: Vital Signs Temperature 98.4 F 01/13/25 13:13 Pulse Rate 67 01/13/25 13:32 Respiratory Rate 16 01/13/25 13:13 Blood Pressure 110/69 01/13/25 13:32 Pulse Oximetry 94 01/13/25 13:32 Oxygen Delivery Me thod Room Air 01/13/25 13:32 MDM - Wound/Laceration Medical Decision Making Patient presented by ambulance for a fall, injuring her left eye, she was sent for CT imaging. No blood thinner use, see HPI for details of the fall. No signs of other injury on exam, she is chronically demented and alert to only her name. Vitals have been stable. No focal neurologic deficit appreciated on exam. Head and cervical spine CT negative for any acute findings. Facial CT showing nondisplaced nasal bone fractures, there was no septal hematoma on exam and airway patent. The wound to the left face appears to be more of a skin tear and there does not appear to be any necessity for procedural closure with sutures. Conservative management for the uncomplicated facial fractures, she will be discharged back to skilled nursing. Lab Data Radiology Impressions Cervical Spine CT 01/13/25 13:18 IMPRESSION: There are multilevel degenerative changes of the cervical spine present with no fracture or dislocation appreciated. Face CT 01/13/25 13:18 IMPRESSION: 1. There is some nondisplaced nasal bone fracture appearance overall with some anterior soft tissue swelling. 2. Symmetric appearance of the orbital soft tissues is demonstrated. Head CT 01/13/25 13:18 IMPRESSION: No mass effect, layering hemorrhage or cranial fracture is demostrated. No acute intracranial changes are appreciated. There does appear to be some chronic overall volume loss as well as hydrocephalus. All radiology interpretation(s) finalized by discharge Discharge Plan Discharge Patient Disposition: Home Clinical Impression: Fall Qualifiers: Encounter type: initial encounter Qualified Code(s): W19.XXXA - Unspecified fall, initial encounter Abrasion of face Qualifiers: Encounter type: initial encounter Qualified Code(s): S00.81XA - Abrasion of other part of head, initial encounter Fractured nasal bones Qualifiers: Encounter type: initial encounter Fracture type: closed Qualified Code(s): S02.2XXA - Fracture of nasal bones, initial encounter for closed fracture Condition: Stable Prescriptions: No Action loratadine 10 mg capsule 10 mg PO DAILY PRN (Reason: allergies) (DME) left hip abduction brace See Rx Instructions .Route .MEDSUPPLY Qty: 1 0RF Rx Instructions: As directed polyethylene glycol 3350 [Miralax] 17 gram Powder In Packet 17 g PO DAILY quetiapine 100 mg Tablet 150 mg PO BEDTIME levothyroxine 75 mcg Tablet 75 mcg PO DAILY omeprazole 20 mg Capsule,Delayed Release(Dr/Ec) 20 mg PO DAILY quetiapine [Seroquel] 50 mg Tablet 50 mg PO DAILY acetaminophen 325 mg Tablet 325 mg PO Q6H PRN (Reason: pain or fever) magnesium hydroxide [Milk of Magnesia] 400 mg/5 mL Suspension 400 mg PO DAILY PRN (Reason: Constipation) hydrocortisone 1 % Cream 1 applic TOPICAL BID PRN (Reason: itching for rash) bisacodyl 10 mg Suppository 10 mg [place] DAILY PRN (Reason: constipaiton) Fleet Enema 19-7 gram/118 mL Enema 118 ml [place] DAILY PRN (Reason: Constipation) nystatin 100,000 unit/gram Powder 1 applic TOPICAL BID Rx Instructions: cleanse beneth right breast with soap and water, pat dry, apply powder BID until healed for rash sennosides-docusate sodium [Stool Softener-Laxative] 8.6-50 mg Tablet 2 tab PO BID Qty: 20 0RF Eliquis 2.5 mg tablet 2.5 mg PO BID Qty: 60 0RF hydrocodone-acetaminophen 5-325 mg Tablet 1 tab PO BID PRN (Reason: Pain, Severe) Qty: 10 0RF citalopram 10 mg tablet 10 mg PO DAILY food supplemt, lactose-reduced Liquid 1 ea PO BID Discharge Orders: Discharge ED (Routine); Ordered 01/13/25 Ordered By: Cornell Wahl Referrals: Cheryl Sullivan DO [Primary Care Provider, Family Practice] Patient Instructions: Patient Portal & Heidi Instructions Activity Restrictions/Additional Instructions: Geriatric Fall Discharge Discharge Instructions: 79-Year-Old Female with Dementia, Post-Fall, Large Skin Tear (Left Periorbital), Nondisplaced Nasal Bone Fractures --- Wound Care Instructions (Left Periorbital Skin Tear): - Documentation: Ensure wound status and care are documented at each dressing change, as documentation rates are suboptimal in dementia patients in long-term care. - Cleansing: Cleanse the wound gently with sterile saline or tap water. There is no evidence that antiseptic irrigation is superior to saline or tap water for infection prevention. - Skin Flap Management: If viable, gently reposition the skin flap over the wound bed. - Dressing: Apply a silver-based hydrofiber dressing (e.g., Aquacel Ag) as first-line management for type 1 or 2 skin tears. This dressing is well-tolerated in the elderly, promotes moist wound healing, and reduces infection risk. If unavailable, use a non-adherent, occlusive dressing (e.g., film, hydrogel, or petrolatum gauze). - Dressing Changes: Change the dressing every 3?7 days, or sooner if saturated or soiled. Monitor for signs of infection (increased redness, swelling, purulent drainage, malodor). - Infection Prevention: Prophylactic antibiotics are not indicated for clean wounds unless signs of infection develop. If infection is suspected, notify the provider for possible initiation of topical or systemic antibiotics. - Moisture Management: Maintain a moist wound environment to optimize healing and minimize trauma during dressing changes. - Tetanus: Confirm tetanus immunization status; administer booster if not up-to-date. - Referral: Refer to cyber systems operations specialist if healing is delayed (>21 days), wound enlarges, or necrosis develops. --- Nasal Bone Fracture Management (Nondisplaced): - Conservative Management: Most nondisplaced nasal bone fractures in the elderly are managed non-operatively unless there is functional impairment (e.g., airway obstruction, severe deformity, septal hematoma). - Pain Control: Use acetaminophen as first-line analgesia. Avoid NSAIDs if risk of bleeding is high or if contraindicated due to comorbidities. - Ice Application: Apply cold compresses to the nasal area for 15?20 minutes every 2?3 hours for the first 48 hours to reduce swelling. - Positioning: Elevate the head of the bed to minimize facial edema. - Nasal Care: Advise against nose blowing, picking, or manipulation for at least 2 weeks. - Follow-Up: Arrange follow-up with primary care or ENT within 3?7 days to reassess for late complications (septal hematoma, persistent deformity, airway compromise). - Surgical Referral: Indications for surgical intervention include persistent airway obstruction, significant cosmetic deformity, or septal hematoma. --- Fall Risk and Prevention: - Functional Assessment: Evaluate baseline and current mobility, ADLs, and fall risk. Document deficits and consider PT/OT referral for mobility and ADL support. - Environmental Modifications: Ensure safe environment (adequate lighting, removal of trip hazards, use of handrails, appropriate footwear). - Medication Review: Review and deprescribe medications that increase fall risk (e.g., sedatives, anticholinergics, antihypertensives as appropriate). - Supervision: Due to dementia, ensure adequate supervision during transfers and ambulation. - Exercise: Encourage participation in balance and strength exercises as tolerated (e.g., PT, chelle chi). --- Return Precautions: - Wound: Return for increasing pain, redness, swelling, purulent drainage, foul odor, fever, or delayed healing (>21 days). - Nasal Fracture: Return for new or worsening nasal obstruction, persistent epistaxis, septal hematoma (bluish swelling inside nose), visual changes, or facial deformity. - General: Return for confusion, new or worsening neurological symptoms, repeated falls, or inability to perform ADLs. --- Special Considerations for Dementia: - Communication: Use simple, clear instructions and visual cues for wound care and fall prevention. - Caregiver Education: Educate nursing staff and caregivers on wound care protocol, fall risk, and monitoring for complications. - Delirium Prevention: Promote orientation, sleep hygiene, and early mobilization. --- Print Language: Faroese Coding Level of Care Code ED [employer]
--- NOTE | 2025-01-13 14:37 | PC.NURSE ---
pt's facial lacerations cleansed with NS, pat dry and non stick dressing placed over open areas secured with tape.
--- NOTE | 2025-01-13 14:56 | PC.NURSE ---
[facility]
[2025-01-13 16:04] VITALS: BP 104/82; PULSE 68; O2SAT 94
== END 2025-01-13 16:06 | disposition home or self-care (01) ==
PROVIDERS: Emergency Provider Physician Assistant; PCP Family Medicine
DX: S02.2XXA Fracture of nasal bones, initial encounter for closed fracture (principal); S00.81XA Abrasion of other part of head, initial encounter; W06.XXXA Fall from bed, initial encounter; Z79.01 Long term (current) use of anticoagulants; E78.5 Hyperlipidemia, unspecified
CPT/HCPCS: 70450; 70486; 72125; 99284

== ENCOUNTER → 2025-02-19 09:20 | Outpatient (BNVA) | payer MEDICARE, MEDICAID, SELFPAY | PROVIDERS: PCP Family Medicine; Visit Provider Physician Assistant | DX: Z47.89 Encounter for other orthopedic aftercare (principal); Z96.649 Presence of unspecified artificial hip joint | CPT/HCPCS: 73502; 99213 ==